=== PATIENT | male | born 1950 | race Caucasian/White ===

== ENCOUNTER 2021-02-13 14:06 | Outpatient (CLI) | payer OTHER, SELFPAY ==
[2021-02-13 14:30] LABS: Basophils Absolute Auto 0.08 K/mm3 (0.00-0.10); Basophils Percent Auto 0.9 % (0.0-1.0); Eosinophils Absolute Auto 0.35 K/mm3 (0.02-0.50); Eosinophils Percent Auto 3.9 % (1.0-6.0); Hematocrit 45.3 % (37.0-46.0); Hemoglobin 14.7 g/dL (12.4-15.3); Immature Granulocyte Absolute 0.02 K/mm3 (0.00-0.00); Immature Granulocyte Percent A 0.2 % (0.0-0.0); Lymphocytes Absolute Auto 1.71 K/mm3 (1.10-4.50); Lymphocytes Percent Auto 19.2 % (18.0-42.0); Mean Corpuscular HGB Conc 32.5 g/dL (32.0-36.0); Mean Corpuscular Hemoglobin 27.4 pg (27.0-31.0); Mean Corpuscular Volume 84.4 fL (78.0-102.0); Mean Platelet Volume 9.1 fl (8.7-11.0); Monocytes Percent Auto 6.7 % (2.0-11.0); Neutrophils Absolute Auto 6.2 K/mm3 (1.7-7.2); Neutrophils Percent Auto 69.1 % (50.0-70.0); Platelet Count Result 350 K/mm3 (150-420); Red Blood Count 5.37 M/mm3 (4.70-6.10); Red Cell Distribution Width 13.9 % (11.6-14.4); White Blood Count 8.9 K/mm3 (4.8-10.8)
[2021-02-13 14:38] LABS: Hemoglobin A1C 5.9 % (<5.7)
[2021-02-13 15:09] LABS: Alanine Aminotransferase 24 U/L (16-63); Albumin Level 3.8 g/dL (3.4-5.0); Alkaline Phosphatase 106 U/L (46-116); Anion Gap 11 mmol/L (8-16); Aspartate Amino Transferase 13 U/L (15-37); Bilirubin,Total 0.6 mg/dL (0.00-1.00); Blood Urea Nitrogen 15 mg/dL (7-18); Calcium 9.1 mg/dL (8.5-10.1); Carbon Dioxide 28 mmol/L (21-32); Chloride 99 mmol/L (98-108); Cholesterol 132 mg/dL (0-200); Estimated Glomerular Filt Rate > 60; Glucose 93 mg/dL (70-99); HDL Direct 36 mg/dL (40-60); LDL Cholesterol Calculated 72 mg/dL (<130); Osmolality Calculated 286 mOsm/kg (285-295); Potassium 4.3 mmol/L (3.5-5.1); Prostate Specific Antigen 1.9 ng/mL (< OR = 4.0); Sodium 138 mmol/L (136-145); Total Protein 7.5 g/dL (6.4-8.2); Triglycerides 120 mg/dL (0-150); Vitamin B12 733 pg/mL (193-986)
[2021-02-16 11:22] LABS: Vitamin D 25 Hydroxy 29 ng/mL (30-100)
== END 2021-02-13 14:07 | disposition home or self-care (01) ==
LOC: CHSLAB 14:14
PROVIDERS: PCP Family Medicine; Visit Provider Family Medicine
DX: R73.9 Hyperglycemia, unspecified (principal); Z00.00 Encounter for general adult medical examination without abnormal findings; I10 Essential (primary) hypertension; E78.5 Hyperlipidemia, unspecified; Z12.5 Encounter for screening for malignant neoplasm of prostate; G60.9 Hereditary and idiopathic neuropathy, unspecified; E55.9 Vitamin D deficiency, unspecified
CPT/HCPCS: 36415; 80053; 80061; 82306; 82607; 83036; 84153; 84443; 85025; G0103

== ENCOUNTER 2021-03-12 09:47 | Emergency (ER) | payer OTHER, SELFPAY ==
--- NOTE | ~2021-03-12 | XR_ITS ---
EXAMINATION: XR abdomen obstructive series DATE: 03/12/2021 10:15 INDICATION: Constipation and generalized abdominal pain TECHNIQUE: Upright and supine views of the abdomen were obtained. COMPARISON: None FINDINGS: There is no free intraperitoneal gas. The bowel gas pattern is nonspecific. The abdomen is relatively gasless which could reflect fluid-filled loops of bowel. Cholecystectomy clips are noted. There is mild lumbar dextroscoliosis. Moderate hip osteoarthritis is noted. There is calcified athero sclerosis. IMPRESSION: 1. Nonspecific bowel gas pattern without acute abnormality identified. Reviewed, dictated and finalized at location B.
[2021-03-12 10:00] VITALS: BP 118/77; PULSE 85; RESP 16; TEMP 36.8; O2SAT 96
--- NOTE | 2021-03-12 10:43 | ED.ABDPAIN ---
HPI - Abdominal Pain General Chief Complaint: Abdominal Pain Stated Complaint: CONSTIPATION Source: patient Mode of arrival: ambulatory Limitations: no limitations History of Present Illness HPI narrative: This is a 70-year-old male that presents with some chronic constipation has tried MiraLax and had a normal bowel movement approximately 2 days ago currently feels like he has sensation of needing to have a bowel movement with no results otherwise there is some minimal abdominal pain with no dysuria no flank pain no shortness of breath or chest pain no fever chills, there is currently no nausea or vomiting. Patient had tried magnesium sulfate [id number] approximately 2 to 3 days ago and had a normal bowel movement. MD elicited complaint: abdominal pain Pertinent past history: constipation Onset (ago): day(s) Pain Consistency: intermittent Location: periumbilical Severity: mild Quality: aching Radiation: none Migration to: no migration Exacerbating factors: nothing Related Data Home Medications Medication Instructions Recorded Confirmed cholecalciferol (vitamin D3) 50 50 mcg PO DAILY 02/21/21 03/12/21 mcg (2,000 unit) capsule simvastatin 40 mg tablet 20 mg PO QHS tablet 02/21/21 03/12/21 Allergies Allergy/AdvReac Type Severity Reaction Status Date / Time No Known Drug Allergies Allergy Unknown Unknown Verified 02/21/21 10:44 Review of Systems Review of Systems: All systems reviewed & are unremarkable except as noted in HPI and below PMFSH Past Medical History Medical History BPH (benign prostatic hyperplasia) CAD (coronary artery disease) Carpal tunnel syndrome CHF (congestive heart failure) COPD (chronic obstructive pulmonary disease) Depression Dyslipidemia Essential hypertension History of colon polyps Idiopathic peripheral neuropathy Myocardial infarct, old (~1995) RYAN (obstructive sleep apnea) Pre-diabetes Vitamin D deficiency Surgical History Surgical History History of cholecystectomy 2002 S/P angioplasties (~2003) S/P CABG (coronary artery bypass graft) (~1995) Family History Family History Father Family history of coronary artery disease Sibling Family history of malignant neoplasm of esophagus Social History Social History Smoking packs per day: 0.25 Smoking cigarettes per day: 5.0 Years smoked: 30 Smoking pack-years: 7.50 Smoking status: Current every day smoker Tobacco type: cigarettes Alcohol intake: current Substance use: never Substance use type: does not use Gender identity (if verbalized by the patient): Male Exam Const: General: no acute distress and alert Orientation/consciousness: patient oriented x3 HENMT: Head: normal to inspection Eyes: Conjunctivae: conjunctivae normal Pupils: Equal, round and reactive pupils present EOM: EOMs intact bilaterally Neck: Neck: normal visual inspection, no lymphadenopathy and no meningeal signs Resp: Effort & Inspection: normal respiratory effort Cardio: Rate: regular rate Rhythm: regular rhythm GI: GI Palp: Yes Soft to palpation Percussion: Yes normal to percussion Urinary Catheter: Urinary Catheter: patent and draining Back/Spine/Pelvis: Back: no CVA tenderness Skin: General skin exam: normal color Rashes: no rashes Neuro: General: patient oriented x3, moves all extremities and no meningeal signs Extrem: General: normal to inspection and no pedal edema Psych: Appearance: grossly normal Mental Status: mental status grossly normal Affect: normal affect Course Course Emergency Course: Patient had obstructive series performed results were reviewed with the patient advised patient to take medication that we will sent to his pharmacy and to follow-up with primary
[2021-03-12 10:52] VITALS: RESP 18
== END 2021-03-12 10:53 | disposition home or self-care (01) ==
PROVIDERS: Emergency Provider Emergency Medicine; PCP Family Medicine
DX: K59.00 Constipation, unspecified (principal); F17.200 Nicotine dependence, unspecified, uncomplicated; I25.10 Atherosclerotic heart disease of native coronary artery without angina pectoris; I50.9 Heart failure, unspecified; J44.9 Chronic obstructive pulmonary disease, unspecified; E78.5 Hyperlipidemia, unspecified
CPT/HCPCS: 74019; 99283

== ENCOUNTER 2021-06-28 00:10 | Day surgery (SDC) | payer OTHER, SELFPAY ==
[2021-06-15 14:22] VITALS: BMI 28.6
[2021-06-28 09:27] VITALS: BP 121/74; PULSE 90; RESP 18; TEMP 36.6; O2SAT 97
[2021-06-28] MEDS: LACTATED RINGERS 1,000 ML 150 ML IV CONT (09:39)
--- NOTE | 2021-06-28 09:44 | WPDGICN ---
Assessment and Plan Assessment and plan (1) History of colon polyps: Code(s): Z86.010 - Personal history of colonic polyps Status: Inactive Assessment and Plan: Patient has a history of colon polyps by previous colonoscopies. Most recently 2014. Plan is for surveillance colonoscopy at this time. GI Consult Note Consult date/time: 06/28/21 09:44 HPI: Shiv Fritz is a 70 year old male Presents for screening colonoscopy. Patient's current weight appetite bowel movements are normal. He denies abdominal pain. He has had no bleeding. Previous colonoscopies have shown colon polyps. Patient presents for follow-up surveillance exam at this time. Review of Systems Review of Systems: All systems reviewed & are unremarkable except as noted in HPI and below PMFSH Past Medical History Medical History (Updated 06/28/21 @ 09:45 by Remberto Cam MD) BPH (benign prostatic hyperplasia) CAD (coronary artery disease) Carpal tunnel syndrome CHF (congestive heart failure) COPD (chronic obstructive pulmonary disease) Depression Dyslipidemia Essential hypertension History of colon polyps Idiopathic peripheral neuropathy Myocardial infarct, old (~1995) RYAN (obstructive sleep apnea) Pre-diabetes Vitamin D deficiency Surgical History Surgical History History of cholecystectomy 2002 S/P angioplasties (~2003) S/P CABG (coronary artery bypass graft) (~1995) Family History Family History Father Family history of coronary artery disease Sibling Family history of malignant neoplasm of esophagus Social History Social History Smoking packs per day: 1 Smoking cigarettes per day: 20.0 Years smoked: 30 Smoking pack-years: 30.00 Smoking status: Light tobacco smoker Tobacco type: cigarettes Additional smoking assessment comments: 1 PACK A WEEK CURRENTLY FOR PAST 3 YEARS 2018 Alcohol intake: never Substance use: never Substance use type: does not use Living arrangements: with family Gender identity (if verbalized by the patient): Male Spiritual care concerns: No Meds Home Medications and Allergies Home Medications Medication Instructions Recorded Confirmed Type cholecalciferol (vitamin D3) 50 50 mcg PO DAILY 02/21/21 06/28/21 History mcg (2,000 unit) capsule gabapentin 300 mg capsule 300 mg PO TID #90 cap 02/21/21 06/28/21 Rx simvastatin 40 mg tablet 20 mg PO QHS tablet 02/21/21 06/28/21 History amlodipine 5 mg tablet 5 mg PO DAILY #90 tablet 05/03/21 06/28/21 Rx clopidogrel 75 mg tablet 75 mg PO DAILY #90 tablet 05/03/21 06/28/21 Rx metoprolol succinate 50 mg 50 mg PO DAILY #90 tablet 05/03/21 06/28/21 Rx tablet,extended release 24 hr quinapril 40 mg tablet 40 mg PO DAILY #90 tablet 05/03/21 06/28/21 Rx sertraline 50 mg tablet 50 mg PO DAILY #90 tablet 05/14/21 06/28/21 Rx tamsulosin 0.4 mg capsule 0.4 mg PO DAILY #90 cap 05/14/21 06/28/21 Rx docusate sodium [Colace] 100 mg PO BID PRN 06/15/21 06/28/21 History trazodone 50 mg tablet 50 mg PO QHS #90 tablet 06/21/21 06/28/21 Rx Allergies Allergy/AdvReac Type Severity Reaction Status Date / Time No Known Drug Allergies Allergy Unknown Unknown Verified 06/28/21 09:25 Vital Signs Vital Signs - 24 hr 06/28/21 09:27 Temperature 97.9 F Pulse Rate 90 Respiratory Rate 18 Blood Pressure 121/74 Pulse Oximetry 97 Exam Narrative: Physical exam reveals patient to be alert. Vital signs stable. HEENT exam is unremarkable. Patient is anicteric. Lungs are clear to auscultation and percussion. Heart is without murmur or extra sounds. Abdominal exam bowel sounds are present soft nontender with no hepatosplenomegaly. Digital external rectal exam is normal.
--- NOTE | 2021-06-28 09:52 | WPDANESEPPF ---
Anes - Initial Pre Proc Eval Procedure: Operation Date: 06/28/21 10:30 Proposed Procedures p Screening Colonoscopy - Remberto Cam MD Date/Time: 06/28/21 09:52 Surgeon: Remberto Cam MD Pre Op Diagnosis: neoplasm screening, hx of colon polyps Patient Data Age: 70 Gender: M Height: 1.75 m Weight: 87.5 kg Last Vital Signs Temp 97.9 F 06/28/21 09:27 Pulse 90 06/28/21 09:27 Resp 18 06/28/21 09:27 BP 121/74 06/28/21 09:27 Pulse Ox 97 06/28/21 09:27 Allergies Allergy/AdvReac Type Severity Reaction Status Date / Time No Known Drug Allergies Allergy Unknown Unknown Verified 06/28/21 09:25 Home Medications Medication Instructions Recorded Confirmed Type cholecalciferol (vitamin D3) 50 50 mcg PO DAILY 02/21/21 06/28/21 History mcg (2,000 unit) capsule gabapentin 300 mg capsule 300 mg PO TID #90 cap 02/21/21 06/28/21 Rx simvastatin 40 mg tablet 20 mg PO QHS tablet 02/21/21 06/28/21 History amlodipine 5 mg tablet 5 mg PO DAILY #90 tablet 05/03/21 06/28/21 Rx clopidogrel 75 mg tablet 75 mg PO DAILY #90 tablet 05/03/21 06/28/21 Rx metoprolol succinate 50 mg 50 mg PO DAILY #90 tablet 05/03/21 06/28/21 Rx tablet,extended release 24 hr quinapril 40 mg tablet 40 mg PO DAILY #90 tablet 05/03/21 06/28/21 Rx sertraline 50 mg tablet 50 mg PO DAILY #90 tablet 05/14/21 06/28/21 Rx tamsulosin 0.4 mg capsule 0.4 mg PO DAILY #90 cap 05/14/21 06/28/21 Rx docusate sodium [Colace] 100 mg PO BID PRN 06/15/21 06/28/21 History trazodone 50 mg tablet 50 mg PO QHS #90 tablet 06/21/21 06/28/21 Rx Patient hx anesthesia problems: none Family hx anesthesia problems: none Results Review: All pre-operative results and documents have been reviewed as part of the pre-operative evaluation. [facility] Past Medical History Medical History (Updated 06/28/21 @ 09:45 by Remberto Cam MD) BPH (benign prostatic hyperplasia) CAD (coronary artery disease) Carpal tunnel syndrome CHF (congestive heart failure) COPD (chronic obstructive pulmonary disease) Depression Dyslipidemia Essential hypertension History of colon polyps Idiopathic peripheral neuropathy Myocardial infarct, old (~1995) RYAN (obstructive sleep apnea) Pre-diabetes Vitamin D deficiency Surgical History Surgical History History of cholecystectomy 2003 S/P angioplasties (~2003) S/P CABG (coronary artery bypass graft) (~1995) Family History Family History Father Family history of coronary artery disease Sibling Family history of malignant neoplasm of esophagus Social History Social History Smoking packs per day: 1 Smoking cigarettes per day: 20.0 Years smoked: 30 Smoking pack-years: 30.00 Smoking status: Light tobacco smoker Tobacco type: cigarettes Additional smoking assessment comments: 1 PACK A WEEK CURRENTLY FOR PAST 3 YEARS 2017 Alcohol intake: never Substance use: never Substance use type: does not use Living arrangements: with family Gender identity (if verbalized by the patient): Male Spiritual care concerns: No Anes - Eval Final PreProcedure Day of Procedure 06/28/21 09:52 Patient weight: overweight Heart: regular rate and rhythm Lungs: clear to auscultation Airway: Mallampati scale class II Neurological: alert and oriented Last oral intake: >/= 8 hours ASA classification: III Emergent: no Anesthetic plan: proceed Anesthesia type and monitoring: general GIVS and standard monitoring Results Review: All pre-operative results and documents have been reviewed as part of the pre-operative evaluation. Informed Consent: The patient's anesthetic plan and its attendant risks and benefits were discussed with the patient/family/POA. Questions were solicited and answers provided to the satisfaction of the patient/family/POA.
[2021-06-28 11:19] VITALS: BP 120/77; PULSE 75; RESP 24; O2SAT 100
[2021-06-28 11:29] VITALS: BP 82/47; PULSE 77; RESP 20; O2SAT 99
[2021-06-28 11:39] VITALS: BP 88/57; PULSE 74; RESP 24; O2SAT 97
[2021-06-28 11:49] VITALS: BP 96/61; PULSE 75; RESP 19; O2SAT 97
[2021-06-28 11:59] VITALS: BP 102/66; PULSE 73; RESP 22; O2SAT 96
== END 2021-06-28 12:10 | disposition home or self-care (01) ==
PROVIDERS: PCP Family Medicine; Visit Provider Internal Medicine Gastroenterology
PROC: 0DJD8ZZ Inspection of Lower Intestinal Tract, Via Natural or Artificial Opening Endoscopic (ICD-10-PCS; CPT 45378; principal; 2021-06-28 10:30)
DX: Z12.11 Encounter for screening for malignant neoplasm of colon (principal); K64.8 Other hemorrhoids; K57.30 Diverticulosis of large intestine without perforation or abscess without bleeding; Z86.010 Personal history of colon polyps; I25.10 Atherosclerotic heart disease of native coronary artery without angina pectoris; J44.9 Chronic obstructive pulmonary disease, unspecified; I11.0 Hypertensive heart disease with heart failure; I50.9 Heart failure, unspecified; E78.5 Hyperlipidemia, unspecified; N40.0 Benign prostatic hyperplasia without lower urinary tract symptoms; I25.2 Old myocardial infarction; G47.33 Obstructive sleep apnea (adult) (pediatric); R73.03 Prediabetes; E55.9 Vitamin D deficiency, unspecified; G62.9 Polyneuropathy, unspecified; F32.9 Major depressive disorder, single episode, unspecified; Z95.1 Presence of aortocoronary bypass graft; F17.210 Nicotine dependence, cigarettes, uncomplicated; Z79.02 Long term (current) use of antithrombotics/antiplatelets
CPT/HCPCS: G0105; J2704; J7120

== ENCOUNTER 2021-08-30 11:23 | Emergency (ER) | payer OTHER, SELFPAY ==
[2021-08-30] VITALS (12 sets, daily range): BP systolic 100–145; BP diastolic 64–90; PULSE 56–73; RESP 15–25; TEMP 36.7; O2SAT 94–100
--- NOTE | ~2021-08-30 | XR_ITS ---
EXAMINATION: XR chest 2V EXAM DATE: 08/30/2021 12:33 INDICATION: hemoptysis. C/O cough, shortness of breath. History CHF hypertension, stents. TECHNIQUE: Frontal and lateral projections of the chest obtained and reviewed. Comparison is made to prior examination from 05/31/2018. FINDINGS: Right hilar masslike opacity, more consistent with bronchogenic carcinoma than pneumonia. Please correlate with the CT pulmonary scan which has been ordered. Sternotomy wires are present without findings to suggest sternal dehiscence. There is no pneumothorax suspected. There are no pleural effusions. Cardiomediastinal silhouette is normal. There are mild gar[place] degenerative changes. IMPRESSION: Right hilar mass. Reviewed, dictated and finalized at location B. UCT DEVELOPMENT SCIENTIST IMPRESSION: Right hilar mass.
--- NOTE | ~2021-08-30 | CT_ITS ---
EXAMINATION: CTA chest PE protocol EXAM DATE: 08/30/2021 12:44 INDICATION: Cough, hemoptysis. TECHNIQUE: Spiral CTA of the chest (pulmonary arteries) was performed with 100 cc Omnipaque 350 intr avenous contrast injection. Images were acquired during the pulmonary arterial phase. Coronal maxi mum intensity projection 3D-reconstructions were created by the technologist on dedicated workstation . Axial, coronal and sagittal reformatted images were reviewed. The dose-length product (DLP) for t his examination was 401.05 mGy-cm. The exposure was tailored according to patient size (auto mA exp osure control), and iterative reconstruction (ASIR) was used as additional dose reduction technique. Correlation is made to chest x-ray same date. FINDINGS: There is right hilar infiltrative 7 cm malignancy invading and occluding the bronchus inte rmedius and causing narrowing of pulmonary arteries extending through this. A right upper lobe segmen crista artery loses attenuation probably from this tumor, no centrally positioned intraluminal filling d efect or suspicion of pulmonary embolism. Precarinal lymph node measuring 1.7 x 1.3 cm probably metas tatic. There is some narrowing of the midesophagus with wall thickening, probably extension of the hi lar malignancy to this region. There is a 2nd right lower lobe focus of malignancy measuring 3.5 cm. There is mild emphysema. No tho racic aortic dissection. There are no pleural or pericardial effusions. There is no pneumothorax. Heart normal in size. There are sternotomy wires, and cardiac/coronary surgical changes. Correlat e with prior history. There is right adrenal mass measuring 5 cm most likely metastatic disease. The re are no osteoblastic or osteolytic lesions identified. There is thoracic spondylosis without oste oblastic or osteolytic lesions identified. IMPRESSION: 1. Infiltrative right hilar 7 cm mass occluding bronchus intermedius and narrowing pulmonary arterie s. 2. Mid esophageal circumferential wall thickening probably extension of this malignancy. 3. Right adrenal metastatic lesion. 4. Precarinal lymphadenopathy. 5. No pulmonary emboli suspected. Reviewed, dictated and finalized at location B. CAP IMPRESSION: 1. Infiltrative right hilar 7 cm mass occluding bronchus intermedius and narro wing pulmonary arteries. 2. Mid esophageal circumferential wall thickening probably extension of this m alignancy. 3. Right adrenal metastatic lesion. 4. Precarinal lymphadenopathy. 5. No pulmonary emboli suspected.
--- NOTE | 2021-08-30 11:35 | ECG_ITS ---
Measurements Intervals [place] Rate: 61 P: 123 [place]: 140 QRS: 145 QRSD: 111 T: 152 QT: 462 QTc: 466 Interpretive Statements SINUS RHYTHM RIGHT AXIS DEVIATION INTRAVENTRICULAR CONDUCTION DELAY DELAYED PRECORDIAL R/S TRANSITION INFERIOR INFARCT, AGE INDETERMINATE T WAVE ABNORMALITY IN ANT/HIGH LAT LEADS- CONSIDER ISCHEMIA BASELINE ARTIFACT- I, II, III, AVR, AVL, AVF, V1-V6 ABNORMAL ECG Electronically Signed On 08-30-2021 12:05:52 ACTIONSCRIPT DEVELOPER by Hadley Reid D.O.
--- NOTE | 2021-08-30 11:37 | ED.SOB ---
HPI - SOB/Dyspnea General Chief Complaint: Shortness of Breath/Dyspnea Stated Complaint: bloody sputum/ sob Time Seen by Provider: 08/30/21 11:24 Source: patient and RN notes reviewed Mode of arrival: EMS Limitations: no limitations History of Present Illness HPI Narrative: This is a 70 year old male smoker with history of CHF, COPD, CAD, stents who presents for evaluation of hemoptysis. Patient states starting 2 days ago he developed a cough. He reports he was having coughing attacks and he was able to cough up large amount of phlegm with streak of blood. Yesterday he reports he felt fine. Today he started having hemoptysis again. He thinks the amount was 1/4 cup of bright red blood. He denies associated fever, chills, nausea, vomiting, epistaxis or chest pain. Two nights ago he had episode of diaphoresis. He states his cough is better when he lays on his right side. He takes plavix for CAD with stents. Related Data Home Medications Medication Instructions Recorded Confirmed cholecalciferol (vitamin D3) 50 50 mcg PO DAILY 02/21/21 07/09/21 mcg (2,000 unit) capsule docusate sodium [Colace] 100 mg PO BID PRN 06/15/21 07/09/21 sertraline mg DAILY 08/30/21 Allergies Allergy/AdvReac Type Severity Reaction Status Date / Time No Known Drug Allergies Allergy Unknown Unknown Verified 08/30/21 11:38 Review of Systems Review of Systems: All systems reviewed & are unremarkable except as noted in HPI and below Constitutional: Constitutional: Denies chills and Denies fever(s) ENT: Denies epistaxis and Denies sore throat Cardiovascular: Cardiovascular: Denies chest pain Respiratory: Respiratory: Reports cough and Reports dyspnea Gastrointestinal: Gastrointestinal: Denies abdominal pain, Denies diarrhea, Denies nausea and Denies vomiting Neurologic: Denies dizziness and Denies headache(s) [facility] Past Medical History Medical History BPH (benign prostatic hyperplasia) CAD (coronary artery disease) Carpal tunnel syndrome CHF (congestive heart failure) COPD (chronic obstructive pulmonary disease) Depression Dyslipidemia Essential hypertension History of colon polyps Idiopathic peripheral neuropathy Myocardial infarct, old (~1995) RYAN (obstructive sleep apnea) Pre-diabetes Vitamin D deficiency Surgical History Surgical History H/O cataract extraction (~06/25/21) History of cholecystectomy 2002 S/P angioplasties (~2003) S/P CABG (coronary artery bypass graft) (~1995) Family History Family History Father Family history of coronary artery disease Sibling Family history of malignant neoplasm of esophagus Social History Social History Smoking packs per day: 1 Smoking cigarettes per day: 20.0 Years smoked: 30 Smoking pack-years: 30.00 Tobacco type: cigarettes Additional smoking assessment comments: 1 PACK A WEEK CURRENTLY FOR PAST 3 YEARS 2017 Alcohol intake: never Substance use: never Substance use type: does not use Gender identity (if verbalized by the patient): Male Spiritual care concerns: No Exam Const: General: no acute distress and alert Orientation/consciousness: patient oriented x3 HENMT: Head: normocephalic and atraumatic Face and sinus: sinuses nontender and face symmetric Mouth: Yes other (dried blood around mouth) Throat: uvula midline Eyes: EOM: EOMs intact bilaterally Resp: Effort & Inspection: normal respiratory effort Auscultation: diminished lung sounds on the right Cardio: Rate: regular rate Rhythm: regular rhythm Heart sounds: no murmurs GI: GI Palp: Yes Soft to palpation, No Tenderness to palpation present (GI) and No Guarding due to palpation present (GI) Auscultation: normal bowel sounds Skin: General skin exam:
[2021-08-30 12:06] LABS: Basophils Absolute Auto 0.1 K/mm3 (0.0-0.1); Basophils Percent Auto 1.1 % (0.2-1.2); Eosinophils Absolute Auto 0.3 K/mm3 (0-0.3); Hematocrit 31.8 % (42.0-52.0); Hemoglobin 10.2 g/dL (14.0-18.0); Immature Granulocyte Absolute 0.06 K/mm3 (0.00-0.031); Immature Granulocyte Percent A 0.5 % (0-0.5); Lymphocytes Absolute Auto 1.15 K/mm3 (0.9-3.2); Mean Corpuscular HGB Conc 32.1 g/dl (32-36); Mean Corpuscular Hemoglobin 26.2 pg (26-34); Mean Corpuscular Volume 81.7 fl (80-100); Mean Platelet Volume 9.4 fl (7.4-10.4); Monocytes Absolute Auto 0.8 K/mm3 (0.1-0.6); Monocytes Percent Auto 6.6 % (2.6-8.5); Neutrophils Absolute Auto 10.3 K/mm3 (1.3-6.7); Neutrophils Percent Auto 80.8 % (45.5-73.1); Platelet Count Result 458 k/mm3 (150-375); Red Blood Count 3.89 M/mm3 (4.6-6.20); White Blood Count 12.8 K/mm3 (4.5-10.0)
[2021-08-30 12:09] LABS: Alveolar/Arterial O2 Gradient 33.4 mmHg; Base Excess ABG 1.5 mEq/l (+/-2.0); Carboxyhemoglobin 0.1 % THb (0-2.0); Device ROOM AIR; Fractional Inspired Oxygen 21 %; Methemoglobin ABG 0.1 %THb (0-1.5); Modified Allen's Test Pass; Oxygen Content ABG 14.4 %vol (16.0-22.0); Oxygen Saturation ABG 93.9 % (95.0-100.0); Oxyhemoglobin 92.5 % THb (90.0-100.0); PCO2 ABG 40.7 mmHg (35.0-45.0); PO2 ABG 67.6 mmHg (80.0-100.0); PO2 FiO2 Ratio Arterial Blood 3.22 %; Reduced Hemoglobin 7.3 %THb (0-5.0); Site Drawn LEFT RADIAL; pH ABG 7.423 (7.350-7.450)
[2021-08-30 12:18] LABS: Alanine Aminotransferase 34 U/L (4-50); Albumin Level 3.7 g/dL (3.5-5.1); Alkaline Phosphatase 135 U/L (38-126); Anion Gap 5 mmol/L (8-16); Aspartate Amino Transferase 36 U/L (17-59); Bilirubin,Total 0.5 mg/dL (0.2-1.3); Blood Urea Nitrogen 20 mg/dL (9-20); Calcium 8.9 mg/dL (8.4-10.2); Carbon Dioxide 27 mmol/L (22-30); Chloride 103 mmol/L (98-107); Estimated CRCL calculation 83 ml/min; Estimated Glomerular Filt Rate > 60; Glucose 120 mg/dL (65-110); Potassium 3.7 mmol/L (3.4-5.0); Sodium 135 mmol/L (137-145)
[2021-08-30 12:20] LABS: INR 1.3; Prothrombin Time 15.8 Seconds (11.1-14.7)
[2021-08-30 12:21] LABS: Partial Thromboplastin Time 38.6 SECONDS (22.3-36.8)
[2021-08-30 12:23] LABS: D Dimer 0.87 ug/mL (<0.48)
[2021-08-30 12:29] LABS: NT Pro B Type Natriuretic Pept 448 pg/mL (5-100); Troponin I < 0.012 ng/mL (0.000-0.034)
[2021-08-30] MEDS: ALPRAZolam (*CRX) 0.5 MG TABLET 0.25 MG PO (16:02)
--- NOTE | 2021-08-30 16:09 | PC.NURSE ---
pocket secretary assembler oksana spoke with [facility]. they are still trying to get bed for pt
--- NOTE | 2021-08-30 23:09 | PC.NURSE ---
Addendum entered by Cherelle Harmon RN 08/30/21 23:10: Report from GEOVANNY Mendes Original Note: Assumed care of pt. at this time. Report from GEOVANNY Temple
[2021-08-31] VITALS (25 sets, daily range): BP systolic 100–139; BP diastolic 56–88; PULSE 57–88; RESP 14–28; O2SAT 93–99
--- NOTE | 2021-08-31 01:51 | PC.NURSE ---
Called [facility] patient transfer center and spoke with Tanvi. Asked about status of patient...still on waitlist for ANY [facility] facility. When level of care becomes available at one of the facilities, they will call us for a doc to doc consult/acceptance.
[2021-08-31] MEDS: diphenhydrAMINE HCl CAP 25 MG CAPSULE 50 MG PO (04:22)
--- NOTE | 2021-08-31 09:47 | PC.NURSE ---
Per Dr. Adame pt. stated to her he wants to go home and .
--- NOTE | 2021-08-31 09:52 | PC.NURSE ---
Pt. first answered no to all the mcewen screening questions then stated he had thought of a couple of ways to do it meaning self harm. When asked about a plan stated slitting my wrists. I don't have any guns or anything. Pt. then stated I really just want to go home and not wake up. Precautions being initiated.
--- NOTE | 2021-08-31 10:21 | PC.NURSE ---
pt. changed into green scrubs immediately after hepzibah assessment; pt. opted to throw away his jeans and socks stated I have had them on for so long , pants and socks soiled with multiple layers and stains. Pt. emptied his own gail pockets. Room made safe as possible, pt. needs to remain on cardiac, pulse oximetry and BP monitoring.
[2021-08-31] MEDS: ALPRAZolam (*CRX) 0.5 MG TABLET 0.25 MG PO (16:03)
--- NOTE | 2021-08-31 19:00 | PC.NURSE ---
Assuming care of pt.
--- NOTE | 2021-08-31 20:02 | PC.NURSE ---
Pt requesting something to help calm him and possibly help him sleep.
[2021-08-31] MEDS: LORazepam (*CRX) 1 MG TABLET PO (20:37)
[2021-09-01] VITALS (8 sets, daily range): BP systolic 106–134; BP diastolic 75–104; PULSE 74–99; RESP 18–22; TEMP 36.7–37.3; O2SAT 95–99
--- NOTE | 2021-09-01 05:39 | PC.NURSE ---
called [facility] transfer center for an update regarding patient status. Patient is still in line waiting for a bed.
--- NOTE | 2021-09-01 08:04 | PC.NURSE ---
pt states that he no longer wishes he were . states that he does not wish to harm himself. pt reports depression and anxiety at this time. feels sad about diagnosis. feels anxious about being in hospital and not at home in comfort
[2021-09-01] MEDS: LORazepam (*CRX) 1 MG TABLET PO ×3 (08:28→21:10)
[2021-09-01 09:01] LABS: Basophils Absolute Auto 0.1 K/mm3 (0.0-0.1); Basophils Percent Auto 0.8 % (0.2-1.2); Eosinophils Absolute Auto 0.2 K/mm3 (0-0.3); Eosinophils Percent Auto 1.7 % (0-4.4); Hematocrit 32.8 % (42.0-52.0); Hemoglobin 10.4 g/dL (14.0-18.0); Immature Granulocyte Absolute 0.03 K/mm3 (0.00-0.031); Immature Granulocyte Percent A 0.3 % (0-0.5); Lymphocytes Absolute Auto 1.24 K/mm3 (0.9-3.2); Lymphocytes Percent Auto 14.1 % (18.3-44.2); Mean Corpuscular HGB Conc 31.7 g/dl (32-36); Mean Corpuscular Hemoglobin 25.9 pg (26-34); Mean Corpuscular Volume 81.8 fl (80-100); Mean Platelet Volume 9.1 fl (7.4-10.4); Monocytes Absolute Auto 0.5 K/mm3 (0.1-0.6); Monocytes Percent Auto 6.1 % (2.6-8.5); Neutrophils Absolute Auto 6.8 K/mm3 (1.3-6.7); Platelet Count Result 389 k/mm3 (150-375); Red Blood Count 4.01 M/mm3 (4.6-6.20); Red Cell Distribution Width 15.1 % (11.5-14.5); White Blood Count 8.8 K/mm3 (4.5-10.0)
[2021-09-01 15:05] LABS: EDCOVIDSCREEN Negative (Negative)
[2021-09-01 15:17] LABS: Amphetamine Screen Urine Negative (Negative); Barbiturate Screen Urine Negative (Negative); Benzodiazepines Screen Urine Positive (Negative); Cannabinoid Screen Urine Negative (Negative); Cocaine Screen Urine Negative (Negative); Methadone Screen Urine Negative (Negative); Opiate Screen Urine Negative (Negative); Phencyclidine Screen Urine Negative (Negative)
--- NOTE | 2021-09-01 19:18 | PC.NURSE ---
Assumed care of pt at this time. Pt alert and supine on stretcher, resting. Pt denies any suicidal ideation, just states whatever happens, happens .
[2021-09-02 00:59] VITALS: BP 125/76; PULSE 82; RESP 22; O2SAT 96
--- NOTE | 2021-09-02 02:30 | PC.NURSE ---
@0047 called [facility] to request transport. ETA given 0200 @0225 [facility] called to update ETA to 0500 [place], [place], and [facility] unavailable.
[2021-09-02 03:04] VITALS: BP 145/97; PULSE 77; RESP 20; O2SAT 98
[2021-09-02 04:52] VITALS: BP 108/66; PULSE 85; RESP 22; O2SAT 96
[2021-09-02 05:19] VITALS: BP 126/71
[2021-09-02] MEDS: LORazepam (*CRX) 1 MG TABLET PO (05:21)
--- NOTE | 2021-09-02 05:52 | PC.NURSE ---
[facility] here.
[2021-09-02 06:04] VITALS: PULSE 95; RESP 25; O2SAT 99
== END 2021-09-02 06:06 | disposition short-term general hospital (02) ==
PROVIDERS: Emergency Medicine; Emergency Provider General Practice; PCP Family Medicine
DX: R91.8 Other nonspecific abnormal finding of lung field (principal); R04.2 Hemoptysis; I25.10 Atherosclerotic heart disease of native coronary artery without angina pectoris; I11.0 Hypertensive heart disease with heart failure; I50.9 Heart failure, unspecified; J44.9 Chronic obstructive pulmonary disease, unspecified; I25.2 Old myocardial infarction; F17.210 Nicotine dependence, cigarettes, uncomplicated; Z79.899 Other long term (current) drug therapy
CPT/HCPCS: 36415; 36600; 71046; 71275; 80053; 80307; 82375; 82805; 83050; 83880; 84484; 85025; 85380; 85610; 85730; 87426; 93005; 96365; 99285; A9270; C9803; J0131; Q9967

== ENCOUNTER 2021-09-29 15:30 | Emergency (ER) | payer OTHER, SELFPAY ==
[2021-09-29] VITALS (10 sets, daily range): BP systolic 115–161; BP diastolic 75–103; PULSE 69–100; RESP 16–25; TEMP 36.6–36.7; O2SAT 98–100
--- NOTE | ~2021-09-29 | XR_ITS ---
EXAMINATION: XR chest 1V portable EXAM DATE: 09/29/2021 19:39 INDICATION: SOB . TECHNIQUE: Portable AP frontal chest x-ray was obtained. Comparison is made to prior examination from 08/30/2021. FINDINGS: Right hilar 7 cm mass again noted. Otherwise no definite superimposed acute airspace diseas e. The cardiomediastinal silhouette is prominent but magnified on this AP technique. Sternotomy wires are present without findings to suggest sternal dehiscence. No pneumothorax or pleural effusion. The re are no osseous abnormalities identified. IMPRESSION: Right hilar 7 cm mass. Reviewed, dictated and finalized at location G. NAVIGATION INSTALLER IMPRESSION: Right hilar 7 cm mass.
--- NOTE | ~2021-09-29 | CT_ITS ---
EXAMINATION: CTA chest PE protocol EXAM DATE: 09/29/2021 20:33 INDICATION: shortness of breath, hemoptysis, lung mass . TECHNIQUE: Spiral CTA of the chest (pulmonary arteries) was performed with 100 cc Omnipaque 350 intr avenous contrast injection. Images were acquired during the pulmonary arterial phase. Coronal maxi mum intensity projection 3D-reconstructions were created by the technologist on dedicated workstation . Axial, coronal and sagittal reformatted images were reviewed. The dose-length product (DLP) for t his examination was 569.86 mGy-cm. The exposure was tailored according to patient size (auto mA exp osure control), and iterative reconstruction (ASIR) was used as additional dose reduction technique. Comparison is made to prior examination from 08/30/2021. FINDINGS: There is right hilar infiltrative 7 cm malignancy invading and occluding the bronchus inte rmedius and causing narrowing of pulmonary arteries extending through this. No intraluminal filling d efects, no pulmonary emboli suspected. Precarinal lymph node measuring 1.7 x 1.3 cm probably metastat ic. There is some narrowing of the midesophagus with wall thickening, probably extension of the hilar malignancy to this region. There is a 2nd right lower lobe focus of malignancy measuring 3.5 cm. Compared to prior study, development of some faint groundglass perihilar airspace disease, possible a cute viral pneumonia. There is mild emphysema. No thoracic aortic dissection. There are no pleural o r pericardial effusions. There is no pneumothorax. Heart normal in size. There are sternotomy w ires, and cardiac/coronary surgical changes. Correlate with prior history. There is right adrenal ma ss measuring 5 cm most likely metastatic disease. There are no osteoblastic or osteolytic lesions marquise ntified. IMPRESSION: 1. Infiltrative right hilar 7 cm mass occluding bronchus intermedius and narrowing pulmonary arterie s. 2. Mid esophageal circumferential wall thickening probably extension of this malignancy. 3. Right adrenal metastatic lesion. 4. Precarinal lymphadenopathy. 5. Development of perihilar groundglass attenuation, possible acute infectious process such as viral pneumonia. 6. No pulmonary emboli suspected. Reviewed, dictated and finalized at location G. UNT ASSISTANT IMPRESSION: 1. Infiltrative right hilar 7 cm mass occluding bronchus intermedius and narro wing pulmonary arteries. 2. Mid esophageal circumferential wall thickening probably extension of this m alignancy. 3. Right adrenal metastatic lesion. 4. Precarinal lymphadenopathy. 5. Development of perihilar groundglass attenuation, possible acute infectious process such as viral pneumonia. 6. No pulmonary emboli suspected.
--- NOTE | 2021-09-29 19:24 | ECG_ITS ---
Measurements Intervals [place] Rate: 75 P: 68 [place]: 136 QRS: 48 QRSD: 105 T: 87 QT: 423 QTc: 473 Interpretive Statements SINUS RHYTHM DELAYED PRECORDIAL R/S TRANSITION INFERIOR INFARCT, AGE INDETERMINATE BORDERLINE T WAVE ABNORMALITY- HIGH LATERAL LEADS ABNORMAL ECG Electronically Signed On 09-29-2021 20:05:11 POULTRY SEXER by Hadley Reid D.O.
[2021-09-29 19:42] LABS: Basophils Absolute Auto 0.1 K/mm3 (0.0-0.1); Basophils Percent Auto 0.7 % (0.2-1.2); Eosinophils Absolute Auto 0.3 K/mm3 (0-0.3); Eosinophils Percent Auto 2.3 % (0-4.4); Hematocrit 29.3 % (42.0-52.0); Hemoglobin 8.9 g/dL (14.0-18.0); Immature Granulocyte Absolute 0.05 K/mm3 (0.00-0.031); Immature Granulocyte Percent A 0.4 % (0-0.5); Lymphocytes Absolute Auto 1.25 K/mm3 (0.9-3.2); Mean Corpuscular HGB Conc 30.4 g/dl (32-36); Mean Platelet Volume 9.2 fl (7.4-10.4); Monocytes Absolute Auto 0.9 K/mm3 (0.1-0.6); Monocytes Percent Auto 7.8 % (2.6-8.5); Neutrophils Absolute Auto 8.9 K/mm3 (1.3-6.7); Neutrophils Percent Auto 77.8 % (45.5-73.1); Platelet Count Result 497 k/mm3 (150-375); Red Blood Count 3.71 M/mm3 (4.6-6.20); Red Cell Distribution Width 16.4 % (11.5-14.5); White Blood Count 11.4 K/mm3 (4.5-10.0)
[2021-09-29 19:47] LABS: Add Urine Microscopic? YES; Appearance Urine Clear (Clear); Bilirubin Urine Negative (Negative); Blood Urine 1+ (Negative); Color Urine Yellow (Yellow); Glucose Urine UA Negative (Negative); Ketones Urine Negative (Negative); Leukocyte Esterase Ur Negative LEU/UL (Negative); Mucus Urine Few /lpf; Nitrate Urine Negative (Negative); Protein Urine Negative (Negative); WBC Urine 0-3 /hpf
[2021-09-29 19:51] LABS: INR 1.3; Prothrombin Time 15.5 Seconds (11.1-14.7)
[2021-09-29 19:53] LABS: Alanine Aminotransferase 26 U/L (4-50); Albumin Level 3.6 g/dL (3.5-5.1); Alkaline Phosphatase 222 U/L (38-126); Anion Gap 10 mmol/L (8-16); Aspartate Amino Transferase 27 U/L (17-59); Bilirubin,Total 0.6 mg/dL (0.2-1.3); Blood Urea Nitrogen 16 mg/dL (9-20); Calcium 8.7 mg/dL (8.4-10.2); Carbon Dioxide 28 mmol/L (22-30); Chloride 99 mmol/L (98-107); Estimated CRCL calculation 74 ml/min; Estimated Glomerular Filt Rate > 60; Glucose 103 mg/dL (65-110); Potassium 3.7 mmol/L (3.4-5.0); Sodium 137 mmol/L (137-145)
[2021-09-29 19:58] LABS: Partial Thromboplastin Time 42.3 SECONDS (22.3-36.8)
[2021-09-29 20:05] LABS: Troponin I 0.015 ng/mL (0.000-0.034)
--- NOTE | 2021-09-29 21:22 | PC.NURSE ---
ERINN drawn x 2 and sent to lab by [facility].
[2021-09-29 21:56] LABS: SARS-CoV-2 RNA PCR Negative
[2021-09-29] MEDS: LORazepam INJ (*CRX) 2 MG/ML VIAL 0.5 MG IV PUSH (22:20)
--- NOTE | 2021-09-29 22:25 | PC.NURSE ---
[facility] Transfer center given report by this RN. Will call ED back when/if bed assignment provided. If pt decompensates or condition changes, instructed to call transfer center to update them.
--- NOTE | 2021-09-29 22:35 | ED.GENADULT ---
HPI - General Adult General Chief complaint: Shortness of Breath/Dyspnea Stated complaint: cough, bloody sputum Time Seen by Provider: 09/29/21 19:20 History of Present Illness HPI narrative: Patient is a 70-year-old gentleman who presents the emergency department with chief complaint of hemoptysis. The patient reports recently was diagnosed with a lung mass and had a mopped assist he was stopped from his antiplatelet therapy and is supposed to follow-up with cardiothoracic at [place]. The patient reports his appointment is on Friday but today started coughing up big chunks of blood. Patient states he felt somewhat short of breath was placed on nasal cannula oxygen and feels a little better. Related Data Home Medications Medication Instructions Recorded Confirmed cholecalciferol (vitamin D3) 50 50 mcg PO DAILY 02/21/21 07/09/21 mcg (2,000 unit) capsule docusate sodium [Colace] 100 mg PO BID PRN 06/15/21 07/09/21 sertraline mg DAILY 08/30/21 Allergies Allergy/AdvReac Type Severity Reaction Status Date / Time No Known Drug Allergies Allergy Unknown Unknown Verified 09/29/21 19:23 Review of Systems Review of Systems: A 10 system review of systems was completed on the patient and is negative except for what is stated in the HPI. Nursing and ancillary documentation was reviewed. [facility] Past Medical History Medical History BPH (benign prostatic hyperplasia) CAD (coronary artery disease) Carpal tunnel syndrome CHF (congestive heart failure) COPD (chronic obstructive pulmonary disease) Depression Dyslipidemia Essential hypertension History of colon polyps Idiopathic peripheral neuropathy Metastatic adenocarcinoma (~09/06/21) Myocardial infarct, old (~1995) RYAN (obstructive sleep apnea) Pre-diabetes Vitamin D deficiency Surgical History Surgical History H/O cataract extraction (~06/25/21) History of cholecystectomy 2002 S/P angioplasties (~2003) S/P CABG (coronary artery bypass graft) (~1995) Family History Family History Father Family history of coronary artery disease Sibling Family history of malignant neoplasm of esophagus Social History Social History Smoking packs per day: 1 Smoking cigarettes per day: 20.0 Years smoked: 30 Smoking pack-years: 30.00 Tobacco type: cigarettes Additional smoking assessment comments: 1 PACK A WEEK CURRENTLY FOR PAST 3 YEARS 2017 Alcohol intake: never Substance use: never Substance use type: does not use Gender identity (if verbalized by the patient): Male Spiritual care concerns: No Exam Narrative: GENERAL: Well-appearing, well-nourished, and in no acute distress. HEAD: Normocephalic, atraumatic. EYES: PERRLA and EOMI. ENT: Nares clear, no rhinorrhea or epistaxis. Mucous membranes moist. NECK: Supple. CHEST: Clear to auscultation. No respiratory distress. HEART: Regular rate and rhythm. No murmur heard. Normal peripheral pulses. ABDOMEN: Soft, nontender, nondistended, normal active bowel sounds. EXTREMITIES: Normal range of motion. No edema. SKIN: Warm, dry, no rash. NEURO: No focal deficits. Alert and oriented x3. PSYCH: Normal mood and affect. Course Course Emergency Course: Patient is feeling better after being placed on oxygen. Due to the patient being scheduled to see cardiothoracic and repeat imaging showing evidence of a mass and obstructive pneumonia patient was started on antibiotics and the case was discussed with the cardiothoracic service at [place]. Vital Signs Vital signs: Vital Signs Temperature 36.6 C 09/29/21 15:46 Pulse Rate 100 09/29/21 15:46 Respiratory Rate 16 09/29/21 15:46 Blood Pressure 115/75 09/29/21 15:46 Pulse Oximetry 99 09/29/21 15:46 Te
[2021-09-30] VITALS (9 sets, daily range): BP systolic 106–144; BP diastolic 72–84; PULSE 73–105; RESP 16–33; TEMP 36.7; O2SAT 99–100
--- NOTE | 2021-09-30 03:26 | PC.NURSE ---
[facility] transfer center updated ED secretary bookkeeper that pt may get a bed later this AM.
--- NOTE | 2021-09-30 06:35 | PC.NURSE ---
Pt moved from H3 to ED bed 3. c/o pain to Right lower anterior ribs. ED MD Fink notified.
--- NOTE | 2021-09-30 06:55 | PC.NURSE ---
This RN went to give pt pain med, and pt was already asleep.
--- NOTE | 2021-09-30 07:15 | PC.NURSE ---
Assumed care of pt from GEOVANNY Malik. Pt sleeping on stretcher.
[2021-09-30] MEDS: MORPHINE SULFATE (*CRX) 4 MG/ML INJ IV PUSH (07:22)
--- NOTE | 2021-09-30 08:58 | PC.NURSE ---
[facility] accepted transfer to [facility] [id number] 15min trip# [id number]
[2021-09-30] MEDS: HYDROmorphone HCL INJ (*CRX) 1 MG/ML SYR 0.5 MG IV PUSH (09:21)
== END 2021-09-30 09:27 | disposition short-term general hospital (02) ==
PROVIDERS: Emergency Provider Emergency Medicine; PCP Family Medicine
DX: R04.2 Hemoptysis (principal); R91.8 Other nonspecific abnormal finding of lung field; Z20.822 Contact with and (suspected) exposure to COVID-19; I25.10 Atherosclerotic heart disease of native coronary artery without angina pectoris; I50.9 Heart failure, unspecified; I11.0 Hypertensive heart disease with heart failure; J44.9 Chronic obstructive pulmonary disease, unspecified; E78.5 Hyperlipidemia, unspecified; G60.9 Hereditary and idiopathic neuropathy, unspecified; I25.2 Old myocardial infarction; N40.0 Benign prostatic hyperplasia without lower urinary tract symptoms; G47.33 Obstructive sleep apnea (adult) (pediatric); R73.03 Prediabetes; E55.9 Vitamin D deficiency, unspecified; F32.A Depression, unspecified; Z98.49 Cataract extraction status, unspecified eye; Z86.010 Personal history of colon polyps; Z95.1 Presence of aortocoronary bypass graft; F17.210 Nicotine dependence, cigarettes, uncomplicated; R94.31 Abnormal electrocardiogram [ECG] [EKG]; C79.71 Secondary malignant neoplasm of right adrenal gland
CPT/HCPCS: 36415; 71045; 71275; 80053; 81001; 83605; 84484; 85025; 85610; 85730; 87040; 93005; 96365; 96366; 96367; 96375; 99285; C9803; J0456; J0696; J1170; J2060; J2270; Q9967; U0003; U0005

== ENCOUNTER 2022-01-17 16:21 | Emergency (ER) | payer OTHER, SELFPAY ==
[2022-01-17] VITALS (22 sets, daily range): BP systolic 95–140; BP diastolic 71–99; PULSE 65–80; RESP 10–20; TEMP 35.9–36.3; O2SAT 79–100
[2022-01-17 16:52] LABS: Basophils Percent Auto 0.2 % (0.2-1.2); Eosinophils Percent Auto 0.2 % (0-4.4); Hematocrit 21.6 % (42.0-52.0); Immature Granulocyte Absolute 0.17 K/mm3 (0.00-0.031); Immature Granulocyte Percent A 1.8 % (0-0.5); Immature Platelet Fraction Pct 5.9 % (0.9-11.2); Lymphocytes Absolute Auto 1.05 K/mm3 (0.9-3.2); Lymphocytes Percent Auto 11.3 % (18.3-44.2); Mean Corpuscular HGB Conc 32.4 g/dl (32-36); Mean Corpuscular Hemoglobin 30.3 pg (26-34); Mean Corpuscular Volume 93.5 fl (80-100); Mean Platelet Volume 9.6 fl (7.4-10.4); Monocytes Absolute Auto 0.8 K/mm3 (0.1-0.6); Monocytes Percent Auto 8.3 % (2.6-8.5); Neutrophils Absolute Auto 7.3 K/mm3 (1.3-6.7); Neutrophils Percent Auto 78.2 % (45.5-73.1); Platelet Count Result 77 k/mm3 (150-375); Red Blood Count 2.31 M/mm3 (4.6-6.20); White Blood Count 9.3 K/mm3 (4.5-10.0)
[2022-01-17 16:59] LABS: Alanine Aminotransferase 36 U/L (4-50); Albumin Level 4.2 g/dL (3.5-5.1); Alkaline Phosphatase 115 U/L (38-126); Anion Gap 8 mmol/L (8-16); Aspartate Amino Transferase 37 U/L (17-59); Bilirubin,Total 0.3 mg/dL (0.2-1.3); Blood Urea Nitrogen 13 mg/dL (9-20); Calcium 8.7 mg/dL (8.4-10.2); Carbon Dioxide 25 mmol/L (22-30); Chloride 102 mmol/L (98-107); Estimated CRCL calculation 48 ml/min; Estimated Glomerular Filt Rate 60; Glucose 109 mg/dL (65-110); Potassium 3.9 mmol/L (3.4-5.0); Sodium 135 mmol/L (137-145)
[2022-01-17 17:02] LABS: INR 1.2; Prothrombin Time 14.6 Seconds (11.1-14.7)
[2022-01-17 17:03] LABS: Partial Thromboplastin Time 32.5 SECONDS (22.3-36.8)
[2022-01-17 17:11] LABS: Anisocytosis 2+ (NORMAL); Ovalocytes 1+ (NORMAL); Platelet Estimate Decreased (Adequate)
--- NOTE | 2022-01-17 18:13 | ED.GENADULT ---
HPI - General Adult General Chief complaint: Recheck/Abnormal Lab/Rx Stated complaint: needs blood transfusion Time Seen by Provider: 01/17/22 18:11 History of Present Illness HPI narrative: Patient is a 71-year-old male with a history of stage IV lung cancer who [facility] who presents with a chief complaint of low hemoglobin. Patient was told to come to the ED by his oncologist due to hemoglobin of 7.0 during routine lab work today. He states he feels fatigued today and did have an episode of nausea and vomiting nonbloody nonbilious emesis, but he denies any abdominal pain or blood in his stools. He states he has received a blood transfusion in the past for this. His last dose of chemo was 2 weeks ago. Related Data Home Medications Medication Instructions Recorded Confirmed cholecalciferol (vitamin D3) 50 50 mcg PO DAILY 02/21/21 07/09/21 mcg (2,000 unit) capsule docusate sodium [Colace] 100 mg PO BID PRN 06/15/21 07/09/21 sertraline mg DAILY 08/30/21 Allergies Allergy/AdvReac Type Severity Reaction Status Date / Time No Known Drug Allergies Allergy Unknown Unknown Verified 09/29/21 19:23 Review of Systems Review of Systems: All systems reviewed & are unremarkable except as noted in HPI and below PMFSH Past Medical History Medical History BPH (benign prostatic hyperplasia) CAD (coronary artery disease) Carpal tunnel syndrome CHF (congestive heart failure) COPD (chronic obstructive pulmonary disease) Depression Dyslipidemia Essential hypertension History of colon polyps Idiopathic peripheral neuropathy Metastatic adenocarcinoma (~09/06/21) Myocardial infarct, old (~1995) RYAN (obstructive sleep apnea) Pre-diabetes Vitamin D deficiency Surgical History Surgical History H/O cataract extraction (~06/25/21) History of cholecystectomy 2002 S/P angioplasties (~2003) S/P CABG (coronary artery bypass graft) (~1995) Family History Family History Father Family history of coronary artery disease Sibling Family history of malignant neoplasm of esophagus Social History Social History Smoking packs per day: 1 Smoking cigarettes per day: 20.0 Years smoked: 30 Smoking pack-years: 30.00 Tobacco type: cigarettes Additional smoking assessment comments: 1 PACK A WEEK CURRENTLY FOR PAST 3 YEARS 2018 Alcohol intake: never Substance use: never Substance use type: does not use Gender identity (if verbalized by the patient): Male Spiritual care concerns: No Exam Narrative: APPEARANCE: Well appearing, no pain in distress, well-nourished. Head: normocephalic and atraumatic. EYES: PERRLA/EOMI, conjunctivae clear NOSE: No nasal drainage EARS: External ear normal in appearance THROAT: Oropharynx is clear. Mucous membranes are moist. NECK: Supple. No adenopathy, no masses. RESPIRATORY: Airway patent, respirations nonlabored. Clear to auscultation bilaterally, no rales, rhonchi, wheezing. CARDIOVASCULAR: Regular rate and rhythm without murmurs, rubs, or gallops. ABDOMINAL: Normoactive bowel sounds. Soft, nontender, nondistended. No rebound tenderness or guarding. MUSCULOSKELETAL: Extremities are warm and well-perfused. Moves all extremities well. No edema. NEURO: Normal speech. No focal neurologic deficits. SKIN: Skin is warm and dry. No rashes. PSYCHIATRIC: Normal affect/mood. Course Course Emergency Course: Spoke with Dr. Herrera, oncologist at [place]. She agrees with plan for transfusing 1 unit of packed red blood cells. States as long as patient is feeling okay after transfusion, okay to go home with close follow-up. Vital Signs Vital signs: Vital Signs Temperature 96.6 F L 01/17/22 16:32 Pulse Rate
[2022-01-17] MEDS: TUBING, BLOOD SET 1 EACH XX (20:55)
[2022-01-17] MEDS: SODIUM CHLORIDE 0.9% IV 250 ML 30 ML IV CONT (20:55)
[2022-01-17] MEDS: ACETAMINOPHEN 325 MG TABLET 650 MG PO (23:09)
[2022-01-18 00:22] VITALS: BP 136/76; PULSE 72; RESP 16; O2SAT 97
[2022-01-18 00:26] LABS: Hematocrit 22.6 % (42.0-52.0); Hemoglobin 7.4 g/dL (14.0-18.0)
[2022-01-18 01:25] VITALS: BP 113/73; PULSE 71; RESP 18; O2SAT 97
== END 2022-01-18 00:55 | disposition home or self-care (01) ==
PROVIDERS: Physician Assistant; Emergency Provider Emergency Medicine; PCP Family Medicine
DX: D64.9 Anemia, unspecified (principal); C34.90 Malignant neoplasm of unspecified part of unspecified bronchus or lung; N40.0 Benign prostatic hyperplasia without lower urinary tract symptoms; I25.10 Atherosclerotic heart disease of native coronary artery without angina pectoris; I50.9 Heart failure, unspecified; I11.0 Hypertensive heart disease with heart failure; J44.9 Chronic obstructive pulmonary disease, unspecified; E78.5 Hyperlipidemia, unspecified; I25.2 Old myocardial infarction; G47.33 Obstructive sleep apnea (adult) (pediatric); R73.03 Prediabetes; G60.9 Hereditary and idiopathic neuropathy, unspecified; E55.9 Vitamin D deficiency, unspecified; Z79.899 Other long term (current) drug therapy; Z98.49 Cataract extraction status, unspecified eye; Z95.1 Presence of aortocoronary bypass graft; F17.210 Nicotine dependence, cigarettes, uncomplicated
CPT/HCPCS: 36415; 36430; 80053; 85014; 85018; 85025; 85055; 85610; 85730; 86850; 86900; 86901; 86920; 96360; 96361; 99285; A9270; J7050; P9016

== ENCOUNTER 2022-03-16 19:45 | Inpatient (IN) | payer OTHER, SELFPAY ==
[2022-03-16] VITALS (8 sets, daily range): BP systolic 100–127; BP diastolic 80–93; PULSE 91–103; RESP 20; TEMP 36.3; O2SAT 92–100
--- NOTE | ~2022-03-16 | XR_ITS ---
EXAMINATION: XR chest 1V portable Exam Date/Time: 03/16/2022 20:05 CDT HISTORY: Weakness/HX OF CHF AND LUNG CANCER Comparison: 09/29/2021. RESULT: Lines, tubes, and devices: Right IJ central venous line terminating at the cavoatrial junction. Inta ct sternotomy wires. Mediastinal clips. Lungs and pleura: Reticular and hazy groundglass opacities in the right lung. Cardiomediastinal silhouette: Decreased size of the right hilar mass, otherwise stable. Other: No acute osseous or upper abdominal finding. IMPRESSION: New right lung opacities may reflect asymmetric edema, posttreatment effects, or infection. Reviewed, dictated and finalized at location K. IMPRESSION: New right lung opacities may reflect asymmetric edema, posttreatment effects, o r infection.
--- NOTE | ~2022-03-16 | XR_ITS ---
EXAMINATION: XR chest 1V portable INDICATION: Hypoxia TECHNIQUE: Portable AP chest at 0916 hours COMPARISON: 03/18/2022 FINDINGS: A right internal jugular Port-A-Cath ends with its tip in the distal superior vena cava. Th ere is a mild diffuse interstitial pattern. A right perihilar opacity is unchanged. There is a small right pleural effusion. No pneumothorax. The heart size is normal. Median sternotomy wires and medias tinal surgical clips are seen, likely from prior coronary artery bypass grafting. IMPRESSION: 1. Mild diffuse interstitial pattern, consistent with pulmonary edema and/or pneumonia. 2. Small right pleural effusion. 3. Right perihilar opacity, consistent with primary bronchogenic carcinoma. Reviewed, dictated and finalized at location B. IMPRESSION: 1. Mild diffuse interstitial pattern, consistent with pulmonary edema and/or pn eumonia. 2. Small right pleural effusion. 3. Right perihilar opacity, consistent with primary bronchogenic carcinoma.
--- NOTE | ~2022-03-16 | XR_ITS ---
XR chest 1V portable DATE: 03/18/2022 09:13 INDICATION: Shortness of breath, hypoxia TECHNIQUE: Portable upright AP chest on 03/18/2022 at 0910 hours COMPARISON: 03/16/2022 portable AP chest FINDINGS: There are diffuse bilateral pulmonary infiltrates, most prominent in the right upper and lo wer lung zones. Status post sternotomy. Heart size appears normal. Right internal jugular Port-A-Cath catheter tip situated near the superior cavoatrial junction. IMPRESSION: Diffuse bilateral pulmonary infiltrates, mildly increased since 03/16/2022 Reviewed, dictated and finalized at location A.
--- NOTE | 2022-03-16 20:04 | ECG_ITS ---
Measurements Intervals [place] Rate: 109 P: 71 SC: 142 QRS: 33 QRSD: 106 T: 12 QT: 306 QTc: 412 Interpretive Statements SINUS TACHYCARDIA ATRIAL PREMATURE COMPLEX POSSIBLE LEFT ATRIAL ENLARGEMENT INFERIOR INFARCT, AGE INDETERMINATE MINIMAL Q WAVES- ANTEROLATERAL LEADS BORDERLINE ST-T WAVE ABNORMALITY- ANTEROLATERAL LEADS BASELINE ARTIFACT- I, II, III, AVR, AVL, AVF, V1 ABNORMAL ECG Electronically Signed On 03-17-2022 6:24:46 CDT by Hadley Reid D.O.
[2022-03-16] MEDS: SODIUM CHLORIDE 0.9% IV 1,000 ML 999 ML IV CONT (21:09)
[2022-03-16 21:35] LABS: Hematocrit 27.2 % (37.0-46.0); Hemoglobin 9.4 g/dL (12.4-15.3); Mean Corpuscular HGB Conc 34.6 g/dL (32.0-36.0); Mean Corpuscular Hemoglobin 36.9 pg (27.0-31.0); Mean Corpuscular Volume 106.7 fL (78.0-102.0); Mean Platelet Volume 10.5 fl (8.7-11.0); Platelet Count Result 284 K/mm3 (150-420); Red Blood Count 2.55 M/mm3 (4.70-6.10); Red Cell Distribution Width 23.5 % (11.6-14.4); White Blood Count 11.3 K/mm3 (4.8-10.8)
[2022-03-16 21:56] LABS: Lactic Acid Reflex 2.5 mmol/L (0.4-2.0)
[2022-03-16 22:02] LABS: Alanine Aminotransferase 39 U/L (16-63); Albumin Level 2.6 g/dL (3.4-5.0); Alkaline Phosphatase 168 U/L (46-116); Anion Gap 13 mmol/L (8-16); Aspartate Amino Transferase 31 U/L (15-37); Bilirubin,Total 0.7 mg/dL (0.00-1.00); Blood Urea Nitrogen 39 mg/dL (7-18); Calcium 9.5 mg/dL (8.5-10.1); Carbon Dioxide 24 mmol/L (21-32); Chloride 92 mmol/L (98-108); Estimated CRCL calculation 37 ml/min; Estimated Glomerular Filt Rate 42; Glucose 104 mg/dL (70-99); NT Pro B Type Natriuretic Pept 1458 pg/mL (0-125); Osmolality Calculated 277 mOsm/kg (285-295); Sodium 129 mmol/L (136-145); Total Protein 7.5 g/dL (6.4-8.2)
[2022-03-16 22:03] LABS: CRP > 10.6 mg/dL (0.0-0.9)
--- NOTE | 2022-03-16 22:18 | ED.WEAKNESS ---
HPI - Weakness General Chief complaint: Weakness Stated complaint: weakness Source: patient and EMS Mode of arrival: EMS Limitations: no limitations History of Present Illness HPI Narrative: this is a 71-year-old gentleman that presents with weakness that he has been having for approximately the last week has had decreased appetite, and EMS was called to the house the patient has a history of COPD hypertension and stage IV lung cancer and is treated at [facility] has a Port-A-Cath in place. Currently there is no fever chills patient is alert denies any shortness of breath denies any chest pain no fever chills no nausea or vomiting. The patient with weakness has been able to feed himself since he lives by himself and was hungry and he ate a meal while he was here in the ER. Otherwise there his O2 sats are stable at 100% on room air with no abdominal pain no flank pain no dysuria. Complaint: generalized weakness Onset (ago): day(s) Related Data Home Medications Medication Instructions Recorded Confirmed cholecalciferol (vitamin D3) 50 50 mcg PO DAILY 02/21/21 03/16/22 mcg (2,000 unit) capsule docusate sodium 100 mg capsule 100 mg PO BID PRN Constipation 06/15/21 03/16/22 (Colace) sertraline 50 mg tablet 50 mg DAILY 08/30/21 03/16/22 Allergies Allergy/AdvReac Type Severity Reaction Status Date / Time No Known Drug Allergies Allergy Unknown Unknown Verified 03/16/22 19:59 Review of Systems Review of Systems: All systems reviewed & are unremarkable except as noted in HPI and below PMFSH Past Medical History Medical History BPH (benign prostatic hyperplasia) CAD (coronary artery disease) Carpal tunnel syndrome CHF (congestive heart failure) COPD (chronic obstructive pulmonary disease) Depression Dyslipidemia Essential hypertension History of colon polyps Idiopathic peripheral neuropathy Metastatic adenocarcinoma (~09/06/21) Myocardial infarct, old (~1995) RYAN (obstructive sleep apnea) Pre-diabetes Vitamin D deficiency Surgical History Surgical History H/O cataract extraction (~06/25/21) History of cholecystectomy 2002 S/P angioplasties (~2003) S/P CABG (coronary artery bypass graft) (~1995) Family History Family History Father Family history of coronary artery disease Sibling Family history of malignant neoplasm of esophagus Social History Social History Smoking packs per day: 1 Smoking cigarettes per day: 20.0 Years smoked: 30 Smoking pack-years: 30.00 Tobacco type: cigarettes Additional smoking assessment comments: 1 PACK A WEEK CURRENTLY FOR PAST 3 YEARS 2018 Alcohol intake: never Substance use: never Substance use type: does not use Gender identity (if verbalized by the patient): Male Spiritual care concerns: No Exam Const: General: no acute distress and alert Nutritional Appearance: well nourished Orientation/consciousness: patient oriented x3 Limitations: no limitations HENMT: Head: normal to inspection General nose exam: Normal external nose present Face and sinus: normal facial exam Mouth: Yes Normal oral and palatal mucosa present Eyes: Conjunctivae: conjunctivae normal Neck: Neck: normal visual inspection Chest: Chest palpation & inspection: normal inspection of the chest Resp: Effort & Inspection: normal respiratory effort Auscultation: diminished lung sounds Cardio: Rate: regular rate Rhythm: regular rhythm GI: GI Palp: Yes Soft to palpation Auscultation: normal bowel sounds Urinary Catheter: Urinary Catheter: patent and draining Skin: General skin exam: normal color Rashes: no rashes Neuro: General: patient oriented x3 and moves all extremities Extrem: General: normal to inspection and no clubbing, cyanosis o
[2022-03-16 22:20] LABS: Band Neutrophils Percent 0 % (0-6); Basophils Absolute Manual 0.11 K/mm3 (0-0.1); Basophils Percent Manual 1 % (0-1); Eosinophils Absolute Manual 0.11 K/mm3 (0.02-0.5); Eosinophils Percent Manual 1 % (1-6); Lymphocytes Absolute Manual 0.67 K/mm3 (1.1-4.5); Lymphocytes Percent Manual 6 % (18-44); Monocytes Absolute Manual 0.11 K/mm3 (0.1-0.90); Monocytes Percent Manual 1 % (3-9); Neutrophils Absolute Manual 10.28 K/mm3 (1.3-6.7); Neutrophils Percent Manual 91 % (46-73); Platelet Clumps Present; Platelet Estimate Adequate (Adequate); Total Cells Counted 100
[2022-03-16 22:21] LABS: Anisocytosis 3+ (NORMAL); Macrocytosis 2+ (NORMAL); Microcytosis 2+ (NORMAL); Poikilocytosis 1+ (NORMAL)
[2022-03-16 23:47] LABS: Add Urine Microscopic? YES; Appearance Urine Clear (Clear); Bilirubin Urine Negative (Negative); Blood Urine Negative (Negative); Color Urine Yellow (Yellow); Glucose Urine UA Negative (Negative); Ketones Urine Trace (Negative); Leukocyte Esterase Ur Negative (Negative); Nitrate Urine Negative (Negative); Protein Urine Negative (Negative); Specific Grav Ur 1.015 (1.010-1.020); pH Urine 5.5 (5.0-8.0)
[2022-03-16 23:53] LABS: Granular Casts Urine 15-19 /lpf; Squamous Epithelial Cell Urine Few /hpf (Few)
--- NOTE | 2022-03-16 23:59 | PC.NURSE ---
Pt asked to use the bedside commode. Pt was assisted to commode where he had watery stool. Pt states he felt dizzy and weak when he stood up. Vitals were obtained. RN phoned ERP to update on status. ERP ordered a 1000mL 0.9% Normal Saline bolus IV. RN wrote down order and verbalized for confirmation.
[2022-03-17] VITALS (12 sets, daily range): BP systolic 87–108; BP diastolic 54–82; PULSE 78–118; RESP 14–22; TEMP 35.8–36.8; O2SAT 94–100; BMI 25.5
[2022-03-17] MEDS: SODIUM CHLORIDE 0.9% IV 1,000 ML 999 ML IV CONT (00:08)
[2022-03-17 00:30] LABS: Reflex Lactic Acid Yes or No Add Lactic
--- NOTE | 2022-03-17 01:00 | ADMGEN ---
This patient, Shiv Fritz, was admitted to 2nd Floor Room 226-2. Patient/family oriented to hospital policies and general routines including ID bracelet, bed and alarms, visiting hours, pain management, procedures, bathroom and other care routines, personal items, smoking policy, room service/diet, and visiting hours. Information on how to activate the Rapid Response Team has been discussed. Patient/Family are encouraged to report perceived risks to care and to ask questions if they do not understand what they are told or what they should do.
[2022-03-17] MEDS: SODIUM CHLORIDE 0.9% IV 1,000 ML 100 ML IV CONT ×3 (01:10→22:23)
[2022-03-17 07:59] LABS: Basophils Absolute Auto 0.03 K/mm3 (0.00-0.10); Basophils Percent Auto 0.3 % (0.0-1.0); Eosinophils Absolute Auto 0.04 K/mm3 (0.02-0.50); Eosinophils Percent Auto 0.3 % (1.0-6.0); Hematocrit 22.2 % (37.0-46.0); Hemoglobin 7.5 g/dL (12.4-15.3); Immature Granulocyte Percent A 0.9 % (0.0-0.0); Lymphocytes Absolute Auto 0.48 K/mm3 (1.10-4.50); Lymphocytes Percent Auto 4.2 % (18.0-42.0); Mean Corpuscular HGB Conc 33.8 g/dL (32.0-36.0); Mean Corpuscular Hemoglobin 36.2 pg (27.0-31.0); Mean Corpuscular Volume 107.2 fL (78.0-102.0); Mean Platelet Volume 10.4 fl (8.7-11.0); Monocytes Absolute Auto 0.96 K/mm3 (0.10-0.90); Monocytes Percent Auto 8.4 % (2.0-11.0); Neutrophils Absolute Auto 9.9 K/mm3 (1.7-7.2); Neutrophils Percent Auto 85.9 % (50.0-70.0); Nucleated Red Blood Cells Absolute Auto 0.03 K/mm3 (0.00-0.00); Nucleated Red Blood Cells Perc 0.3 % (0-0.0); Platelet Count Result 217 K/mm3 (150-420); Red Blood Count 2.07 M/mm3 (4.70-6.10); White Blood Count 11.5 K/mm3 (4.8-10.8)
[2022-03-17 08:23] LABS: Alanine Aminotransferase 26 U/L (16-63); Albumin Level 1.9 g/dL (3.4-5.0); Alkaline Phosphatase 124 U/L (46-116); Anion Gap 9 mmol/L (8-16); Aspartate Amino Transferase 24 U/L (15-37); Bilirubin,Total 0.6 mg/dL (0.00-1.00); Blood Urea Nitrogen 32 mg/dL (7-18); Calcium 8.5 mg/dL (8.5-10.1); Carbon Dioxide 23 mmol/L (21-32); Chloride 100 mmol/L (98-108); Estimated CRCL calculation 40 ml/min; Estimated Glomerular Filt Rate 48; Glucose 113 mg/dL (70-99); Osmolality Calculated 281 mOsm/kg (285-295); Sodium 132 mmol/L (136-145); Total Protein 5.7 g/dL (6.4-8.2)
--- NOTE | 2022-03-17 10:37 | PM.IMHP ---
H&P: HPI History of Present Illness Date/Time: 03/17/22 10:37 Chief Complaint: Weakness Narrative: This is a 71-year-old male who presented to our emergency department with complaints of weakness. Patient has a past medical history of BPH, CAD, carpal tunnel syndrome, congestive heart failure, COPD, depression, dyslipidemia, hypertension, history of colon polyps, peripheral neuropathy, metastatic adenocarcinoma, ND, obstructive sleep apnea, prediabetic, and vitamin D deficiency. According to patient for approximately 7 days he has not been able to eat or drink he does have stage IV lung cancer and has been treated [facility]. Patient notes that he has not had an appetite and progressively became weak. Patient notes that his neighbor was concerned and called the police department who kicked in his door and found him unable to care for himself. Vital signs 108/64, 93, 20, 97.4, 94% on 4 L nasal cannula, WBCs 11.3, hemoglobin 9.4, hematocrit 27.2, platelets 284, sodium 129, potassium 4.0,, total bilirubin 0.7, CRP greater than 10.6, BNP 1458, UA with a trace of ketone chest x-ray abnormality to the right lung possible infection, EKG indicates sinus tach with a heart rate of 109. Patient being admitted for dehydration acute kidney injury, hyponatremia. Patient only complaint is that his appetite has decreased he is weak he also complains of dysuria we will repeat the UA. The patient denies SOB, CP, palpitation, extremity numbness, lightheadedness, dizziness, constipation, diarrhea, chills, or fever. We will do a PT OT consult and see if patient qualifies for [facility] Past Medical History Medical History BPH (benign prostatic hyperplasia) CAD (coronary artery disease) Carpal tunnel syndrome CHF (congestive heart failure) COPD (chronic obstructive pulmonary disease) Depression Dyslipidemia Essential hypertension History of colon polyps Idiopathic peripheral neuropathy Metastatic adenocarcinoma (~09/06/21) Myocardial infarct, old (~1995) RYAN (obstructive sleep apnea) Pre-diabetes Vitamin D deficiency Surgical History Surgical History H/O cataract extraction (~06/25/21) History of cholecystectomy 2002 S/P angioplasties (~2003) S/P CABG (coronary artery bypass graft) (~1995) Family History Family History Father Family history of coronary artery disease Sibling Family history of malignant neoplasm of esophagus Social History Social History Smoking packs per day: 1 Smoking cigarettes per day: 20.0 Years smoked: 30 Smoking pack-years: 30.00 Smoking status: Former smoker Tobacco type: cigarettes Additional smoking assessment comments: 1 PACK A WEEK CURRENTLY FOR PAST 3 YEARS 2017 Alcohol intake: never Substance use: current Substance use type: marijuana Other substance usage details: patient states that he takes edibles before chemo treatments Gender identity (if verbalized by the patient): Male Spiritual care concerns: No Meds Home Medications and Allergies Home Medications Medication Instructions Recorded Confirmed Type cholecalciferol (vitamin D3) 50 50 mcg PO DAILY 02/21/21 03/16/22 History mcg (2,000 unit) capsule docusate sodium 100 mg capsule 100 mg PO BID PRN Constipation 06/15/21 03/16/22 History (Colace) trazodone 50 mg tablet 50 mg PO QHS #90 tabs 06/21/21 03/16/22 Rx bupropion HCl 150 mg tablet,12 hr 150 mg PO BID #180 tabs 07/09/21 03/16/22 Rx sustained-release (Wellbutrin SR) amlodipine 5 mg tablet 5 mg PO DAILY #90 tabs 08/08/21 03/16/22 Rx clopidogrel 75 mg tablet 75 mg PO DAILY #90 tabs 08/08/21 03/16/22 Rx gabapentin 300 mg capsule 300 mg PO TID #90 caps 08/08/21 03/16/22 Rx metoprolol succinate 50 mg 50 mg PO DAILY #90 tabs
[2022-03-17] MEDS: HYDROcodone/acetaminophen (*CRX) 5-325 MG TABLET 1 TAB PO (11:29)
[2022-03-17] MEDS: PANTOPRAZOLE 40 MG TABLET PO (12:12)
[2022-03-17] MEDS: GABAPENTIN 300 MG CAPSULE PO ×2 (13:00→18:16)
[2022-03-17] MEDS: MEGESTROL ACETATE (*CHEMO) 40 MG TABLET PO ×3 (13:10→21:00)
[2022-03-17] MEDS: SACCHAROMYCES BOULARDII 250 MG CAPSULE PO (18:16)
[2022-03-17] MEDS: BUDESONIDE/FORMOTEROL (*SP) 160-4.5 MCG 6 GM INH 2 PUFF INHALATION (18:16)
[2022-03-17] MEDS: SIMVASTATIN 10 MG TABLET 20 MG PO (21:00)
[2022-03-17] MEDS: buPROPion HCL SR (12 HR) 150 MG TAB PO (21:00)
[2022-03-17 21:14] LABS: Add Urine Microscopic? NO; Appearance Urine Clear (Clear); Bilirubin Urine Negative (Negative); Blood Urine Negative (Negative); Color Urine Yellow (Yellow); Glucose Urine UA Negative (Negative); Ketones Urine Negative (Negative); Leukocyte Esterase Ur Negative LEU/UL (Negative); Nitrate Urine Negative (Negative); Protein Urine Negative (Negative); Specific Grav Ur <= 1.005 (1.010-1.020)
[2022-03-18] VITALS (13 sets, daily range): BP systolic 111–143; BP diastolic 69–94; PULSE 87–110; RESP 16–24; TEMP 35.9–36.1; O2SAT 87–95
--- NOTE | 2022-03-18 01:45 | PC.NURSE ---
Patient c/o being cold; Warm blanket given. States feels cold with low sugar. Requests Blood Sugar Check:117. Requests diet Pepsi and is given same.
[2022-03-18 01:57] LABS: Glucose Point of Care 117 mg/dl (65-105)
[2022-03-18] MEDS: HYDROcodone/acetaminophen (*CRX) 5-325 MG TABLET 1 TAB PO ×2 (05:16→17:07)
[2022-03-18 06:19] LABS: Hematocrit 21.1 % (37.0-46.0); Hemoglobin 7.1 g/dL (12.4-15.3); Mean Corpuscular HGB Conc 33.6 g/dL (32.0-36.0); Mean Corpuscular Volume 107.1 fL (78.0-102.0); Mean Platelet Volume 10.8 fl (8.7-11.0); Platelet Count Result 190 K/mm3 (150-420); Red Blood Count 1.97 M/mm3 (4.70-6.10); Red Cell Distribution Width 23.4 % (11.6-14.4); White Blood Count 11.6 K/mm3 (4.8-10.8)
[2022-03-18] MEDS: BUDESONIDE/FORMOTEROL (*SP) 160-4.5 MCG 6 GM INH 2 PUFF INHALATION ×2 (06:20→17:08)
[2022-03-18 06:37] LABS: Alanine Aminotransferase 20 U/L (16-63); Albumin Level 1.6 g/dL (3.4-5.0); Alkaline Phosphatase 107 U/L (46-116); Anion Gap 9 mmol/L (8-16); Aspartate Amino Transferase 27 U/L (15-37); Bilirubin,Total 0.5 mg/dL (0.00-1.00); Blood Urea Nitrogen 27 mg/dL (7-18); Calcium 8.2 mg/dL (8.5-10.1); Carbon Dioxide 22 mmol/L (21-32); Chloride 100 mmol/L (98-108); Estimated CRCL calculation 44 ml/min; Estimated Glomerular Filt Rate 53; Glucose 97 mg/dL (70-99); Magnesium 1.3 mg/dL (1.8-2.4); Osmolality Calculated 277 mOsm/kg (285-295); Potassium 3.8 mmol/L (3.5-5.1); Sodium 131 mmol/L (136-145); Total Protein 5.1 g/dL (6.4-8.2)
[2022-03-18] MEDS: buPROPion HCL SR (12 HR) 150 MG TAB PO ×2 (08:32→20:34)
[2022-03-18] MEDS: PANTOPRAZOLE 40 MG TABLET PO (08:32)
[2022-03-18] MEDS: GABAPENTIN 300 MG CAPSULE PO ×3 (08:32→17:07)
[2022-03-18] MEDS: MEGESTROL ACETATE (*CHEMO) 40 MG TABLET PO ×4 (08:33→20:34)
[2022-03-18] MEDS: TAMSULOSIN HCL 0.4 MG CAPSULE PO (08:33)
[2022-03-18] MEDS: SERTRALINE HCL 50 MG TABLET PO (08:33)
[2022-03-18] MEDS: lisinopriL 20 MG TABLET 40 MG PO (08:34)
[2022-03-18] MEDS: SACCHAROMYCES BOULARDII 250 MG CAPSULE PO ×2 (08:34→17:08)
[2022-03-18] MEDS: amLODIPine BESYLATE 5 MG TABLET PO (08:35)
[2022-03-18] MEDS: METOPROLOL SUCCINATE EXT REL 50 MG TABCR PO (08:35)
[2022-03-18] MEDS: CLOPIDOGREL BISULFATE 75 MG TABLET PO (08:36)
[2022-03-18] MEDS: CHOLECALCIFEROL 1,000 UNITS TABLET 2000 UNITS PO (08:36)
[2022-03-18] MEDS: ENOXAPARIN 40 MG/0.4 ML SYRINGE SUB-Q (08:36)
--- NOTE | 2022-03-18 09:18 | PC.NURSE ---
Patient had an acute change of status. 02 sat 50-60% on 10L, short of breath and Labor. MALATHI Elizondo assessed patient. Attempted to call family Son and nephew to notified of patients status change, no answer, this nurse left message to call back at [phone]. Process of patient transfer to high acuity started by MALATHI Elizondo.
[2022-03-18 09:52] LABS: Base Excess ABG -10.9 mmol/L (0-2); HCO3 ABG 13.5 mmol/L (23-29); Oxygen Content ABG 9.6 %vol (16.0-22.0); Oxygen Saturation ABG 78.5 % (95-97); PCO2 ABG 25.2 mmHg (35-45); PO2 ABG 46.6 mmHg (75-85); Total Hemoglobin 8.7 g/dL (12.0-18.0); pH ABG 7.35 (7.35-7.45)
[2022-03-18 09:53] LABS: Device HIGH FLOW NASAL CANN; Modified Allen's Test Pass; Site Drawn LEFT RADIAL
--- NOTE | 2022-03-18 10:15 | PC.NURSE ---
Patients nephew Geoffrey called back. Update give about patients change of status.
--- NOTE | 2022-03-18 10:15 | PC.NURSE ---
Called aboriginal education worker coordinator case management at [facility], spoke with Alisia about referral for hospice for patient. Alisia states she will contact family about the company they would like to go with.
--- NOTE | 2022-03-18 10:24 | P.PN_ITS ---
Progress Note: A&P Assessment and Plan (1) Pneumonia: Qualifiers: Laterality: right Lung location: lower lobe of lung Pneumonia type: due to unspecified organism Qualified Code(s): J18.9 - Pneumonia, unspecified organism Code(s): J18.9 - Pneumonia, unspecified organism Status: Acute Assessment and Plan: * Chest x-ray indicate right lung abnormality possible infection repeat chest x- ray indicates worsening pneumonia * CRP elevated greater than 10 * Continue Rocephin started vancomycin * Blood culture pending * WBCs 11.5>11.6 * Lactic acid 2.5 * Patient placed on high flow nasal cannula improved (2) Hyponatremia: Code(s): E87.1 - Hypo-osmolality and hyponatremia Status: Acute Assessment and Plan: * Improving * [id number]>132>131 * We will continue to monitor (3) Metastatic adenocarcinoma: Onset Date: ~09/06/21 Code(s): C79.9 - Secondary malignant neoplasm of unspecified site Status: Acute Assessment and Plan: * Patient's oncology is Dr.Daniel Ny (4) Vitamin D deficiency: Code(s): E55.9 - Vitamin D deficiency, unspecified Status: Acute Assessment and Plan: * Continue vitamin D supplements (5) Depression: Qualifiers: Depression Type: unspecified Qualified Code(s): F32.9 - Major depressive disorder, single episode, unspecified Code(s): F32.9 - Major depressive disorder, single episode, unspecified Status: Acute Assessment and Plan: * Continue sertraline (6) CHF (congestive heart failure): Qualifiers: Heart failure type: unspecified Heart failure chronicity: chronic Qualified Code(s): I50.9 - Heart failure, unspecified Code(s): I50.9 - Heart failure, unspecified Status: Acute Assessment and Plan: * BNP 1458 * We will cautiously administer IV fluids * Will start daily weights with I&O's * Chest x-ray does not indicate pulmonary edema (7) Essential hypertension: Code(s): I10 - Essential (primary) hypertension Status: Acute Assessment and Plan: * Blood pressure 143/94 * Will hold amlodipine 5 mg metoprolol 50 mg lisinopril 40 mg will resume when appropriate * Vital signs as ordered * Will adjust medication as needed (8) CAD (coronary artery disease) of bypass graft: Qualifiers: [place] vs. transplanted heart: [place] heart Associated angina: without angina Qualified Code(s): I25.810 - Atherosclerosis of coronary artery bypass graft(s) without angina pectoris Code(s): I25.810 - Atherosclerosis of coronary artery bypass graft(s) without angina pectoris Status: Acute Assessment and Plan: * Continue statins and Plavix (9) Dyslipidemia: Code(s): E78.5 - Hyperlipidemia, unspecified Status: Acute Assessment and Plan: * Continue statins (10) BPH (benign prostatic hyperplasia): Qualifiers: Lower urinary tract symptom presence: unspecified whether lower urinary tract symptoms present Qualified Code(s): N40.0 - Benign prostatic hyperplasia without lower urinary tract symptoms Code(s): N40.0 - Benign prostatic hyperplasia without lower urinary tract symptoms Status: Acute Assessment and Plan: * Continue Tessalon Perles (11) RYAN (obstructive sleep apnea): Code(s): G47.33 - Obstructive sleep apnea (adult) (pediatric) Status: Acute Assessment and Plan: * Patient has not used CPAP for years * Patient will use supplementary oxygen at night
--- NOTE | 2022-03-18 10:24 | WPDPN ---
Progress Note: A&P Assessment and Plan (1) Pneumonia: Qualifiers: Laterality: right Lung location: lower lobe of lung Pneumonia type: due to unspecified organism Qualified Code(s): J18.9 - Pneumonia, unspecified organism Code(s): J18.9 - Pneumonia, unspecified organism Status: Acute Assessment and Plan: Chest x-ray indicate right lung abnormality possible infection repeat chest x-ray indicates worsening pneumonia CRP elevated greater than 10 Continue Rocephin started vancomycin Blood culture pending WBCs 11.5>11.6 Lactic acid 2.5 Patient placed on high flow nasal cannula improved (2) Hyponatremia: Code(s): E87.1 - Hypo-osmolality and hyponatremia Status: Acute Assessment and Plan: Improving [id number]>132>131 We will continue to monitor (3) Metastatic adenocarcinoma: Onset Date: ~09/06/21 Code(s): C79.9 - Secondary malignant neoplasm of unspecified site Status: Acute Assessment and Plan: Patient's oncology is Dr.Daniel Ny (4) Vitamin D deficiency: Code(s): E55.9 - Vitamin D deficiency, unspecified Status: Acute Assessment and Plan: Continue vitamin D supplements (5) Depression: Qualifiers: Depression Type: unspecified Qualified Code(s): F32.9 - Major depressive disorder, single episode, unspecified Code(s): F32.9 - Major depressive disorder, single episode, unspecified Status: Acute Assessment and Plan: Continue sertraline (6) CHF (congestive heart failure): Qualifiers: Heart failure type: unspecified Heart failure chronicity: chronic Qualified Code(s): I50.9 - Heart failure, unspecified Code(s): I50.9 - Heart failure, unspecified Status: Acute Assessment and Plan: BNP 1458 We will cautiously administer IV fluids Will start daily weights with I&O's Chest x-ray does not indicate pulmonary edema (7) Essential hypertension: Code(s): I10 - Essential (primary) hypertension Status: Acute Assessment and Plan: Blood pressure 143/94 Will hold amlodipine 5 mg metoprolol 50 mg lisinopril 40 mg will resume when appropriate Vital signs as ordered Will adjust medication as needed (8) CAD (coronary artery disease) of bypass graft: Qualifiers: [place] vs. transplanted heart: [place] heart Associated angina: without angina Qualified Code(s): I25.810 - Atherosclerosis of coronary artery bypass graft(s) without angina pectoris Code(s): I25.810 - Atherosclerosis of coronary artery bypass graft(s) without angina pectoris Status: Acute Assessment and Plan: Continue statins and Plavix (9) Dyslipidemia: Code(s): E78.5 - Hyperlipidemia, unspecified Status: Acute Assessment and Plan: Continue statins (10) BPH (benign prostatic hyperplasia): Qualifiers: Lower urinary tract symptom presence: unspecified whether lower urinary tract symptoms present Qualified Code(s): N40.0 - Benign prostatic hyperplasia without lower urinary tract symptoms Code(s): N40.0 - Benign prostatic hyperplasia without lower urinary tract symptoms Status: Acute Assessment and Plan: Continue Tessalon Perles (11) RYAN (obstructive sleep apnea): Code(s): G47.33 - Obstructive sleep apnea (adult) (pediatric) Status: Acute Assessment and Plan: Patient has not used CPAP for years Patient will use supplementary oxygen at night (12) COPD (chronic obstructive pulmonary disease): Qualifiers: COPD type: unspecified COPD Qualified Code(s): J44.9 - Chronic obstructive pulmonary disease, unspecified Code(s): J44.9 - Chronic obstructive pulmonary disease, unspecified Status: Acute Assessment and Plan: Stable Will add as needed albuterol with Symbicort scheduled (13) Dehydration: Code(s): E86.0 - Dehydration Status:
[2022-03-18] MEDS: IPRATROPIUM 0.5 MG/ALBUTEROL SULFATE 2.5 MG AMPUL.NEB 3 ML INHALATION ×3 (10:30→19:13)
--- NOTE | 2022-03-18 10:42 | PCPTNOTE ---
Nursing informed me to hold PT on this date due to patient declining presentation. We will check with nursing tomorrow to see if pt. is again rehab appropriate. Kenn Villegas, MPT
[2022-03-18 11:28] LABS: Estimated CRCL calculation 36 ml/min; Estimated Glomerular Filt Rate 42
[2022-03-18 12:11] LABS: Glucose Point of Care 119 mg/dl (65-105)
[2022-03-18] MEDS: FUROSEMIDE INJ 100 MG/10 ML VIAL 80 MG IV PUSH (12:33)
[2022-03-18] MEDS: methylPREDNISolone SOD SUCC 125 MG VIAL IV PUSH (12:35)
[2022-03-18 16:28] LABS: Glucose Point of Care 155 mg/dl (65-105)
--- NOTE | 2022-03-18 17:25 | PC.NURSE ---
Patient requested his inhaler early, stating that it really helped him breathe this am.
[2022-03-18] MEDS: traMADol HCL (*CRX) 50 MG TABLET PO (20:08)
[2022-03-18] MEDS: SIMVASTATIN 10 MG TABLET 20 MG PO (20:34)
[2022-03-19] VITALS (30 sets, daily range): BP systolic 71–117; BP diastolic 41–75; PULSE 70–132; RESP 16–39; TEMP 35.6–35.8; O2SAT 81–100
--- NOTE | 2022-03-19 00:05 | PC.NURSE ---
Pt SPO2 continues to drop into the 70s and 80s, O2 noted at 45 liters per high flow, orders specify 50 liters, O2 increased to ordered amount, SPO2 now at 87-91%. Respiratory aware and will be in to check equipment.
[2022-03-19] MEDS: HYDROcodone/acetaminophen (*CRX) 5-325 MG TABLET 1 TAB PO (00:45)
[2022-03-19] MEDS: IPRATROPIUM 0.5 MG/ALBUTEROL SULFATE 2.5 MG AMPUL.NEB 3 ML INHALATION ×5 (00:47→23:22)
--- NOTE | 2022-03-19 01:07 | PC.NURSE ---
Patient's SPO2 dropping into low 80's. RT maxed out setting for high flow. Continued to drop in mid 80's. Patient agreeable to BiPAP. GRADUATE ADVISOR aware and new order received for BiPAP. MSG left for PENG/Wayne Hoskins to report decline in condition.
--- NOTE | 2022-03-19 01:14 | PC.NURSE ---
Spoke with POA/nephew regarding change in condition
[2022-03-19 05:28] LABS: Mean Corpuscular HGB Conc 33.9 g/dL (32.0-36.0); Mean Corpuscular Hemoglobin 36.9 pg (27.0-31.0); Mean Corpuscular Volume 109.1 fL (78.0-102.0); Mean Platelet Volume 10.9 fl (8.7-11.0); Platelet Count Result 179 K/mm3 (150-420); Red Blood Count 1.76 M/mm3 (4.70-6.10); White Blood Count 10.3 K/mm3 (4.8-10.8)
[2022-03-19 05:46] LABS: Alanine Aminotransferase 16 U/L (16-63); Albumin Level 1.6 g/dL (3.4-5.0); Alkaline Phosphatase 102 U/L (46-116); Anion Gap 12 mmol/L (8-16); Aspartate Amino Transferase 44 U/L (15-37); Bilirubin,Total 0.3 mg/dL (0.00-1.00); Blood Urea Nitrogen 46 mg/dL (7-18); Calcium 8.4 mg/dL (8.5-10.1); Carbon Dioxide 21 mmol/L (21-32); Chloride 101 mmol/L (98-108); Estimated CRCL calculation 29 ml/min; Estimated Glomerular Filt Rate 33; Glucose 131 mg/dL (70-99); Osmolality Calculated 291 mOsm/kg (285-295); Potassium 4.1 mmol/L (3.5-5.1); Sodium 134 mmol/L (136-145); Total Protein 5.2 g/dL (6.4-8.2)
[2022-03-19 05:53] LABS: Hematocrit 19.2 % (37.0-46.0); Hemoglobin 6.5 g/dL (12.4-15.3)
[2022-03-19] MEDS: BUDESONIDE/FORMOTEROL (*SP) 160-4.5 MCG 6 GM INH 2 PUFF INHALATION ×2 (05:59→17:36)
[2022-03-19 06:25] LABS: Base Excess ABG -7.1 mmol/L (0-2); HCO3 ABG 18.4 mmol/L (23-29); Oxygen Content ABG 10.7 %vol (16.0-22.0); Oxygen Saturation ABG 97.2 % (95-97); Oxyhemoglobin 96.5 % (94-100); PCO2 ABG 36.5 mmHg (35-45); PO2 ABG 117.4 mmHg (75-85); Total Hemoglobin 7.7 g/dL (12.0-18.0); pH ABG 7.32 (7.35-7.45)
[2022-03-19 06:26] LABS: Modified Allen's Test Pass; Site Drawn LEFT RADIAL
[2022-03-19 06:30] LABS: Device BIPAP
[2022-03-19 06:31] LABS: Expiratory Pressure 10 cmH2O; Fractional Inspired Oxygen 80 %; Inspiratory Pressure 14 cmH2O
--- NOTE | 2022-03-19 06:54 | PC.NURSE ---
DEEP WELL CONTRACTOR contacted regarding H/H being low. New order received for ABG and cross type and match. Spoke with son regarding his change in condition. Son stated he was going to speak with his cousin who is his father's POA.
[2022-03-19] MEDS: methylPREDNISolone SOD SUCC 125 MG VIAL 80 MG IV PUSH (08:54)
[2022-03-19] MEDS: SACCHAROMYCES BOULARDII 250 MG CAPSULE PO ×2 (09:00→17:18)
[2022-03-19] MEDS: SERTRALINE HCL 50 MG TABLET PO (09:01)
[2022-03-19] MEDS: GABAPENTIN 300 MG CAPSULE PO ×3 (09:01→17:17)
[2022-03-19] MEDS: PANTOPRAZOLE 40 MG TABLET PO (09:01)
[2022-03-19] MEDS: TAMSULOSIN HCL 0.4 MG CAPSULE PO (09:01)
[2022-03-19] MEDS: CHOLECALCIFEROL 1,000 UNITS TABLET 2000 UNITS PO (09:01)
[2022-03-19] MEDS: CLOPIDOGREL BISULFATE 75 MG TABLET PO (09:02)
[2022-03-19] MEDS: ENOXAPARIN 40 MG/0.4 ML SYRINGE SUB-Q (09:02)
[2022-03-19] MEDS: buPROPion HCL SR (12 HR) 150 MG TAB PO (09:02)
[2022-03-19] MEDS: MEGESTROL ACETATE (*CHEMO) 40 MG TABLET PO ×3 (09:02→17:17)
--- NOTE | 2022-03-19 10:03 | P.PN_ITS ---
Progress Note: A&P Assessment and Plan (1) Pneumonia: Qualifiers: Laterality: right Lung location: lower lobe of lung Pneumonia type: due to unspecified organism Qualified Code(s): J18.9 - Pneumonia, unspecified organism Code(s): J18.9 - Pneumonia, unspecified organism Status: Acute Assessment and Plan: * Chest x-ray indicate right lung abnormality possible infection repeat chest x- ray indicates worsening pneumonia * CRP elevated greater than 10 * Continue Rocephin started vancomycin * Blood culture pending * WBCs 11.5>11.6>10.3 * Lactic acid 2.5 * Patient placed on high flow nasal cannula improved (2) Hyponatremia: Code(s): E87.1 - Hypo-osmolality and hyponatremia Status: Acute Assessment and Plan: * Improving * [id number]>132>131>134 * We will continue to monitor (3) Metastatic adenocarcinoma: Onset Date: ~09/06/21 Code(s): C79.9 - Secondary malignant neoplasm of unspecified site Status: Acute Assessment and Plan: * Patient's oncology is Dr.Daniel Ny as [place] (4) Vitamin D deficiency: Code(s): E55.9 - Vitamin D deficiency, unspecified Status: Acute Assessment and Plan: * Continue vitamin D supplements (5) Depression: Qualifiers: Depression Type: unspecified Qualified Code(s): F32.9 - Major depressive disorder, single episode, unspecified Code(s): F32.9 - Major depressive disorder, single episode, unspecified Status: Acute Assessment and Plan: * Continue sertraline (6) CHF (congestive heart failure): Qualifiers: Heart failure type: unspecified Heart failure chronicity: chronic Qualified Code(s): I50.9 - Heart failure, unspecified Code(s): I50.9 - Heart failure, unspecified Status: Acute Assessment and Plan: * BNP 1458 * We will cautiously administer IV fluids * Will start daily weights with I&O's * Chest x-ray does not indicate pulmonary edema (7) Essential hypertension: Code(s): I10 - Essential (primary) hypertension Status: Acute Assessment and Plan: * Blood pressure 106/51 * Will hold amlodipine 5 mg metoprolol 50 mg lisinopril 40 mg will resume when appropriate * Vital signs as ordered * Will adjust medication as needed (8) CAD (coronary artery disease) of bypass graft: Qualifiers: [place] vs. transplanted heart: [place] heart Associated angina: without angina Qualified Code(s): I25.810 - Atherosclerosis of coronary artery bypass graft(s) without angina pectoris Code(s): I25.810 - Atherosclerosis of coronary artery bypass graft(s) without angina pectoris Status: Acute Assessment and Plan: * Continue statins and Plavix (9) Dyslipidemia: Code(s): E78.5 - Hyperlipidemia, unspecified Status: Acute Assessment and Plan: * Continue statins (10) BPH (benign prostatic hyperplasia): Qualifiers: Lower urinary tract symptom presence: unspecified whether lower urinary tract symptoms present Qualified Code(s): N40.0 - Benign prostatic hyperplasia without lower urinary tract symptoms Code(s): N40.0 - Benign prostatic hyperplasia without lower urinary tract symptoms Status: Acute Assessment and Plan: * Continue Tessalon Perles (11) RYAN (obstructive sleep apnea): Code(s): G47.33 - Obstructive sleep apnea (adult) (pediatric) Status: Acute Assessment and Plan: * Patient has not used CPAP for years * Patient will use supplementary
--- NOTE | 2022-03-19 10:03 | WPDPN ---
Progress Note: A&P Assessment and Plan (1) Pneumonia: Qualifiers: Laterality: right Lung location: lower lobe of lung Pneumonia type: due to unspecified organism Qualified Code(s): J18.9 - Pneumonia, unspecified organism Code(s): J18.9 - Pneumonia, unspecified organism Status: Acute Assessment and Plan: Chest x-ray indicate right lung abnormality possible infection repeat chest x-ray indicates worsening pneumonia CRP elevated greater than 10 Continue Rocephin started vancomycin Blood culture pending WBCs 11.5>11.6>10.3 Lactic acid 2.5 Patient placed on high flow nasal cannula improved (2) Hyponatremia: Code(s): E87.1 - Hypo-osmolality and hyponatremia Status: Acute Assessment and Plan: Improving [id number]>132>131>134 We will continue to monitor (3) Metastatic adenocarcinoma: Onset Date: ~09/06/21 Code(s): C79.9 - Secondary malignant neoplasm of unspecified site Status: Acute Assessment and Plan: Patient's oncology is Dr.Daniel Ny as [place] (4) Vitamin D deficiency: Code(s): E55.9 - Vitamin D deficiency, unspecified Status: Acute Assessment and Plan: Continue vitamin D supplements (5) Depression: Qualifiers: Depression Type: unspecified Qualified Code(s): F32.9 - Major depressive disorder, single episode, unspecified Code(s): F32.9 - Major depressive disorder, single episode, unspecified Status: Acute Assessment and Plan: Continue sertraline (6) CHF (congestive heart failure): Qualifiers: Heart failure type: unspecified Heart failure chronicity: chronic Qualified Code(s): I50.9 - Heart failure, unspecified Code(s): I50.9 - Heart failure, unspecified Status: Acute Assessment and Plan: BNP 1458 We will cautiously administer IV fluids Will start daily weights with I&O's Chest x-ray does not indicate pulmonary edema (7) Essential hypertension: Code(s): I10 - Essential (primary) hypertension Status: Acute Assessment and Plan: Blood pressure 106/51 Will hold amlodipine 5 mg metoprolol 50 mg lisinopril 40 mg will resume when appropriate Vital signs as ordered Will adjust medication as needed (8) CAD (coronary artery disease) of bypass graft: Qualifiers: [place] vs. transplanted heart: [place] heart Associated angina: without angina Qualified Code(s): I25.810 - Atherosclerosis of coronary artery bypass graft(s) without angina pectoris Code(s): I25.810 - Atherosclerosis of coronary artery bypass graft(s) without angina pectoris Status: Acute Assessment and Plan: Continue statins and Plavix (9) Dyslipidemia: Code(s): E78.5 - Hyperlipidemia, unspecified Status: Acute Assessment and Plan: Continue statins (10) BPH (benign prostatic hyperplasia): Qualifiers: Lower urinary tract symptom presence: unspecified whether lower urinary tract symptoms present Qualified Code(s): N40.0 - Benign prostatic hyperplasia without lower urinary tract symptoms Code(s): N40.0 - Benign prostatic hyperplasia without lower urinary tract symptoms Status: Acute Assessment and Plan: Continue Tessalon Perles (11) RYAN (obstructive sleep apnea): Code(s): G47.33 - Obstructive sleep apnea (adult) (pediatric) Status: Acute Assessment and Plan: Patient has not used CPAP for years Patient will use supplementary oxygen at night (12) COPD (chronic obstructive pulmonary disease): Qualifiers: COPD type: unspecified COPD Qualified Code(s): J44.9 - Chronic obstructive pulmonary disease, unspecified Code(s): J44.9 - Chronic obstructive pulmonary disease, unspecified Status: Acute Assessment and Plan: Stable Will add as needed albuterol with Symbicort scheduled (13) Dehydration: Code(s): E86.0 - Dehydr
[2022-03-19] MEDS: SODIUM CHLORIDE 0.9% IV 250 ML 30 ML IV CONT (10:20)
--- NOTE | 2022-03-19 10:42 | PCDIET ---
Started blood transfusion. Patient tolerating well.
--- NOTE | 2022-03-19 13:31 | PCOTNOTE ---
Patient not seen for OT evaluation secondary to SUPER[employer]ENDENT [employer] and nursing staff. Patient on hold secondary to medical concerns. MS
--- NOTE | 2022-03-19 13:38 | PC.NURSE ---
transfusion ended at 1325. Patient tolerated well.
[2022-03-19] MEDS: SODIUM CHLORIDE 0.9% IV 1,000 ML 100 ML IV CONT (13:50)
[2022-03-19 13:57] LABS: Hematocrit 24.6 % (37.0-46.0); Hemoglobin 8.3 g/dL (12.4-15.3)
--- NOTE | 2022-03-19 14:20 | PC.NURSE ---
RT attempted to place patient back on bipap, and patient SPO2 fluctuated between 62 and 90 wildly. Patient unable to maintain SPO2 above 90 percent consistently at this time. Vancomycin and NS late due to transfusion.
--- NOTE | 2022-03-19 14:58 | PCRCNOTE ---
called to pts room, oxygen saturations 80-87% placed patient back on bipap. Once on bipap 27/12 80% pts saturations increased to 92%.
--- NOTE | 2022-03-19 15:55 | PCRCNOTE ---
70% on the bipap, pts saturations would not maintain >90%. Turned bipap oxygention back up to 80%. patients saturtions increased >90%
--- NOTE | 2022-03-19 17:47 | PC.NURSE ---
Patient has increased respirations to 26 per min. with SPO2 at 99 percent on bipap. RT here to administer breathing treatment and attempt to use High Flow O2. Patient not tolerating well, with SPO2 dropping well below 85 and fluctuating.
--- NOTE | 2022-03-19 19:18 | PCRCNOTE ---
spoke to MACHINE SETTER AND REPAIRER Caro martinez patients oxygenation. Ok to place pt on airvo 60 liters 100% plus no rebreather mask to maintain saturations@ 88-90% Rn aware. pt tolerating well, heart rate 86 respiratory rate 24 oxygen saturations 89-91%
--- NOTE | 2022-03-19 21:10 | PC.NURSE ---
son and nephew both called and notified of unresponsive episode, RT to put pt back on airvo nc and non rebreather mask per freight tallier, freight tallier will put in orders for morphine and ativan, nephew will come up to sit with pt, front desk auxiliary is aware
--- NOTE | 2022-03-19 21:10 | PCRCNOTE ---
RN notified respiratory therapists of desaturations RT reapplied airvo at 60L and 100% patients saturations increased back to 90%. DEBURRER notified of patients status at this time. Per DEBURRER patient to remain on airvo and NRB
--- NOTE | 2022-03-19 21:30 | PC.NURSE ---
During bedside change of shift report, patient indicated that he wanted something to eat, and to use the commode before going to bed. Patient was given soup, with crackers and a vanilla ensure. patient was wearing an AirVo with a nonrebreather mask, which made eating and drinking difficult. Patient was shown how to pull the mask up, take a bite, and replace the mask. Charge nurse was asked to monitor his O2 sats while he ate, as she was at the nurse's desk. Patient was left to eat, and was checked on a short time later. patient asked to use the commode, as he needed to have a bowel movement. A second nurse was notified, to help with the transfer. Patient had difficulty standing long enough to remove brief. He sat on the commode, and had his BM. Patient had a very difficult time breathing. and kept dislodging the nonrebreather. Nurse attempted to hold it in place, but patient did not like that, and tried to do it himself. After a few minutes, patient was able to stand, and the brief was removed. Patient returned to the commode as he was not done with the BM. A few minutes later, he was finished, but was unable to stand on his own. Using the gait belt, and with a nurse on either arm, patient was lifted and returned to the bed, where he was cleaned up. Respiratory therapy was contacted. by that time, the patient was nonresponsive. His breathing was very labored. RT placed the patient on the Bi-Pap machine, but noted that the patient was no longer taking his own breaths. He was then placed back on the Air-Vo with the nonrebreather mask, and made comfortable. The charge nurse contacted the Nurse Practitioner, and patient's family. After approximately 15 minutes, patient once again became responsive, and was able to hold a conversation with Respiratory Therapy. Patient asked what happened? . He was again made comfortable. Patient's nephew came to see him.
[2022-03-19] MEDS: MORPHINE SULFATE (*CRX) 2 MG/ML INJ IV PUSH (21:55)
[2022-03-20] VITALS: BP 77/52; PULSE 67; RESP 12; TEMP 36.6
[2022-03-20] MEDS: LORazepam INJ (*CRX) 2 MG/ML VIAL IV PUSH (00:14)
--- NOTE | 2022-03-20 00:42 | PC.NURSE ---
Pt doesnt have a pulse and no signs of respirations noted.
--- NOTE | 2022-03-20 00:58 | PC.NURSE ---
Graciela Franklin NP, notified of pt's passing at 0042.
--- NOTE | 2022-03-20 08:00 | PC.NURSE ---
baker helper called, cannot take patient, not a budget accountant case, family undecided which home to use, no morgue here, remains in room at this time
--- NOTE | 2022-03-20 08:49 | PC.NURSE ---
saving sight here for eye recovery, still no word from family regarding home to call
--- NOTE | 2022-03-20 09:20 | PC.NURSE ---
Nephew here to hop picker personal items, tablet, cell phone, wallet, keys, hearing aids, clothing, shoes, belt all sent home with nephew, will go to apartment and see if they can retrieve any information patient had on plan of care for end of life, advised to call his son if they cannot find anything, agreed to call son approx 10 am to see if he has made decision on arrangements
--- NOTE | 2022-03-20 10:34 | PC.NURSE ---
Spoke with Maggie, son, thinking dad wanted to be donated to science, advised will call [facility] to see what they know regarding this process, will call maggie back when call completed Call to [facility], spoke with [place], donation is an involved process, would have to have been over 72 hours before and accepted at a school for this to happen, will not be able to donate body, willing to take patient when family decides what is to be done.
--- NOTE | 2022-03-20 10:59 | PC.NURSE ---
Spoke with son Maggie, gave information on local home pricing regarding cremation as donation of body would not be an option, will call family and call back with which facility they will use
--- NOTE | 2022-03-20 11:15 | PC.NURSE ---
Wayne called back and we are good to release body to [facility]
--- NOTE | 2022-03-20 11:30 | PC.NURSE ---
Spoke with Ronald Cho from [facility], will send [facility] home to pickle maker patient/remains for them, all information given to Ronald for family name and numbers to contact when patient/remains arrives
--- NOTE | 2022-03-20 13:20 | PC.NURSE ---
Remains released to [facility] home, [facility] [place]
--- NOTE | 2022-03-29 07:46 | P.DN_ITS ---
Discharge Summary Date and Time Date of : 03/20/22 Time of : 00:42 Provider Pronounced By: Mary Kay Mcclelland; Mireille Loyd Probable Cause of Probable Cause of : Respiratory failure Summary Hospital Course: This is a 71-year-old male who presented to our emergency department with com plaints of weakness.? Patient has a past medical history of BPH, CAD, carpal tunnel syndrome, congestive heart failure, COPD, depression, dyslipidemia, hypertension, history of colon polyps, peripheral neuropathy, metastatic adenocarcinoma, IA, obstructive sleep apnea, prediabetic, and vitamin D deficiency.? According to patient for approximately 7 days he has not been able to eat or drink he does have stage IV lung cancer and has been treated [facility].? Patient notes that he has not had an appetite and progressively became weak.? Patient notes that his neighbor was concerned and called the police department who kicked in his door and found him unable to care for himself. Patient condition quickly deteriorated. Patient's family member on his status. On 03/20 42 patient pronounced Additional Data Confirmation of as documented by pronouncing clinician: Pupillary Reflex, Palpable Pulses, Response to Stimuli, Heart Tones and Breath Sounds Name of Provider Notified: Caro Franklin Time Provider Notified: 00:58 Provider Requests Autopsy: No Family Requests Autopsy: No Date [facility] Notified of : 03/20/22 Time [facility] Notified of : 01:00
== END 2022-03-20 00:42 | disposition expired | DRG 193 ==
LOC: CHSED 22:58 → CHS2ND 03-17 01:49
PROVIDERS: Nurse Practitioner; Admitting Provider Internal Medicine; Emergency Provider Emergency Medicine; PCP Family Medicine; Visit Provider Internal Medicine
DX: J18.9 Pneumonia, unspecified organism (principal); J96.90 Respiratory failure, unspecified, unspecified whether with hypoxia or hypercapnia; E87.1 Hypo-osmolality and hyponatremia; C34.90 Malignant neoplasm of unspecified part of unspecified bronchus or lung; C79.9 Secondary malignant neoplasm of unspecified site; N17.9 Acute kidney failure, unspecified; I25.810 Atherosclerosis of coronary artery bypass graft(s) without angina pectoris; I11.0 Hypertensive heart disease with heart failure; I50.9 Heart failure, unspecified; E86.0 Dehydration; E55.9 Vitamin D deficiency, unspecified; E78.5 Hyperlipidemia, unspecified; G60.9 Hereditary and idiopathic neuropathy, unspecified; I25.2 Old myocardial infarction; R73.03 Prediabetes; N40.0 Benign prostatic hyperplasia without lower urinary tract symptoms; G62.9 Polyneuropathy, unspecified; G47.33 Obstructive sleep apnea (adult) (pediatric); F32.A Depression, unspecified; F17.210 Nicotine dependence, cigarettes, uncomplicated; Z95.1 Presence of aortocoronary bypass graft; Z86.010 Personal history of colon polyps; J44.0 Chronic obstructive pulmonary disease with (acute) lower respiratory infection
CPT/HCPCS: 36415; 36430; 36600; 71045; 80053; 81001; 81003; 82565; 82805; 82948; 83605; 83735; 83880; 85014; 85018; 85025; 85027; 86140; 86850; 86900; 86901; 86920; 87040; 93005; 94640; 94660; 96361; 96365; 96367; 97161; 99285; A9270; J0456; J0696; J1650; J1940; J2060; J2270; J2930; J3370; J7030; J7050; P9016